=== PATIENT | female | born 1955 | race Hispanic/Latino ===

== ENCOUNTER 2018-11-19 13:37 | Emergency (ER) | payer BC ==
[2018-11-19] MEDS ORDERED: ALBUTEROL 2.5 MG/3 ML NEB SOL ONE (14:39)
[2018-11-19] MEDS ORDERED: IPRATROPIUM BROM 0.5MG/2.5ML ONE (14:39)
--- NOTE | 2018-11-19 15:17 | RAD REPORT ---
EXAM DESCRIPTION: Naya Felton (2 Views)11/19/2018 2:37 pm CLINICAL HISTORY: Cough COMPARISON: September 2017 FINDINGS: The lungs appear clear of acute infiltrate. The heart is borderline enlarged IMPRESSION: No acute abnormalities displayed
--- NOTE | 2018-11-19 15:39 | EDPHYS ---
Physician Documentation [facility] Name: Krystyna Figueroa Age: 63 yrs Sex: Female : 1955 Arrival Date: 11/19/2018 Time: 13:40 Bed 11 Private MD: Brice Sahu E ED Physician Gerhard James HPI: 11/19 15:37 This 63 yrs old Female presents to ER via Ambulatory with complaints of Sore kb Throat, Fever. 15:37 The patient or guardian reports cough, that is intermittent, described as moderate, kb with productive sputum, flu symptoms, low-grade fever, myalgias. Onset: The symptoms/episode began/occurred 1 week(s) ago. Severity of symptoms: At their worst the symptoms were moderate, in the emergency department the symptoms are unchanged. Modifying factors: The symptoms are alleviated by nothing, the symptoms are aggravated by nothing. Associated signs and symptoms: Pertinent positives: fever, sore throat, Pertinent negatives: chest pain, diarrhea, ear ache, nausea, sore throat, vomiting. The patient has not experienced similar symptoms in the past. The patient has not recently seen a physician. Historical: - Allergies: 13:40 No Known Allergies; la1 - PMHx: 13:40 allergies; Arthritis; Hypertension; la1 - Immunization history:: Adult Immunizations up to date. - Social history:: Smoking status: Patient/guardian denies using tobacco, Smoking status: Patient/guardian denies using tobacco. ROS: 15:36 Neck: Negative for injury, pain, and swelling, Cardiovascular: Negative for chest pain, kb palpitations, and edema, Abdomen/GI: Negative for abdominal pain, nausea, vomiting, diarrhea, and constipation, Back: Negative for injury and pain, MS/Extremity: Negative for injury and deformity, Skin: Negative for injury, rash, and discoloration, Neuro: Negative for headache, weakness, numbness, tingling, and seizure. 15:36 Constitutional: Positive for fever, Negative for body aches, chills, fatigue, malaise, poor PO intake, weight loss. 15:36 ENT: Positive for sore throat. 15:36 Respiratory: Positive for cough, Negative for dyspnea on exertion, hemoptysis, orthopnea, pleurisy, shortness of breath, sputum production, wheezing. Exam: 15:37 Constitutional: This is a well developed, well nourished patient who is awake, alert, kb and in no acute distress. Head/Face: Normocephalic, atraumatic. ENT: Nares patent. No nasal discharge, no septal abnormalities noted. Tympanic membranes are normal and external auditory canals are clear. Oropharynx with no redness, swelling, or masses, exudates, or evidence of obstruction, uvula midline. Mucous membranes moist. Neck: Trachea midline, no thyromegaly or masses palpated, and no cervical lymphadenopathy. Supple, full range of motion without nuchal rigidity, or vertebral point tenderness. No Meningismus. Chest/axilla: Normal chest wall appearance and motion. Nontender with no deformity. No lesions are appreciated. Cardiovascular: Regular rate and rhythm with a normal S1 and S2. No gallops, murmurs, or rubs. Normal PMI, no JVD. No pulse deficits. Abdomen/GI: Soft, non-tender, with normal bowel sounds. No distension or tympany. No guarding or rebound. No evidence of tenderness throughout. Skin: Warm, dry with normal turgor. Normal color with no rashes, no lesions, and no evidence of cellulitis. MS/ Extremity: Pulses equal, no cyanosis. Neurovascular intact. Full, normal range of motion. Neuro: Awake and alert, GCS 15, oriented to person, place, time, and situation. Cranial nerves II-XII grossly intact. Motor strength 5/5 in all extremities. Sensory grossly intact. Cerebellar exam normal. Normal gait. 15:37 Respiratory: the patient does not display signs of respiratory distress, Respirations: normal, symetrical, Breath sounds: wheezing: expiratory that is mild, is heard in the left posterior lower lobe and right posterior lower lobe. Vital Signs: 13:42 Pulse 85; Resp 18; Pulse Ox 97% on R/A; Weight 89.81 kg; Height 5 ft. 7 in. (170.18 cm);la1 13:42 Temp 98.3(O); la1 13:43 BP 115 / 72; la1 13:42 Body Mass Index 31.01 (89.81 kg, 170.18 cm) la1 MDM: 13:50 Patient medically screened. kb 15:36 Data reviewed: vital signs, nurses notes. Data interpreted: Pulse oximetry: on room air kb is 97 %. Interpretation: normal. Counseling: I had a detailed discussion with the patient and/or guardian regarding: the historical points, exam findings, and any diagnostic results supporting the discharge/admit diagnosis, lab results, radiology results, the need for outpatient follow up, a family practitioner, to return to the emergency department if symptoms worsen or persist or if there are any questions or concerns that arise at home. 11/19 13:42 Order name: Strep; Complete Time: 14:28 la1 11/19 13:44 Order name: Flu; Complete Time: 14:18 la1 11/19 14:16 Order name: Chest Pa And Lat (2 Views) XRAY; Complete Time: 15:18 kb 11/19 14:27 Order name: Throat Culture EDMS Administered Medications: 14:41 Drug: DuoNeb (3:1) (2.5 mg - 0.5 mg) 3 ml Route: Nebulizer; 15:58 Follow up: Response: No adverse reaction; Marked relief of symptoms ss Disposition: 11/19/18 15:39 Discharged to Home. Impression: Bronchitis, not specified as acute or chronic. - Condition is Stable. - Discharge Instructions: Acute Bronchitis, Esmi-nx-Aryx, Viral Respiratory Infection, [id number]-Mlkb. - Prescriptions for Prednisone 20 mg Oral Tablet - take 1 tablet by ORAL route once daily for 5 days; 5 tablet. - Medication Reconciliation Form, Thank You Letter, Antibiotic Education, Prescription Opioid Use form. - Follow up: Emergency Department; When: As needed; Reason: Worsening of condition. Follow up: Private Physician; When: 2 - 3 days; Reason: Recheck today's complaints, Continuance of care, Re-evaluation by your physician. Signatures: Dispatcher [employer] EDLucia Bartholomew, YUNG-C YUNG-Margy Wheeler RN RN ss Trev Navarro RN RN la1 Corrections: (The following items were deleted from the chart) 15:57 15:39 11/19/2018 15:39 Discharged to Home. Impression: Bronchitis, not specified as ss acute or chronic. Condition is Stable. Forms are Medication Reconciliation Form, Thank You Letter, Antibiotic Education, Prescription Opioid Use. Follow up: Emergency Department; When: As needed; Reason: Worsening of condition. Follow up: Private Physician; When: 2 - 3 days; Reason: Recheck today's complaints, Continuance of care, Re-evaluation by your physician. kb
--- NOTE | 2018-11-19 15:39 | ER ---
Nurse's Notes [facility] Name: Krystyna Figueroa Age: 63 yrs Sex: Female : 1955 Arrival Date: 11/19/2018 Time: 13:40 Bed 11 Private MD: Brice Sahu E Diagnosis: Bronchitis, not specified as acute or chronic Presentation: 11/19 13:41 Presenting complaint: Patient states: I have been coughing for over a week and my la1 tonsils got swollen and covered in pus. Transition of care: patient was not received from another setting of care. Onset of symptoms was November 19, 2018. Risk Assessment: Do you want to hurt yourself or someone else? Patient reports no desire to harm self or others. Initial Sepsis Screen: Does the patient meet any 2 criteria? No. Patient's initial sepsis screen is negative. Does the patient have a suspected source of infection? No. Patient's initial sepsis screen is negative. Care prior to arrival: None. 13:41 Method Of Arrival: Ambulatory la1 13:41 Acuity: GIANCARLO 4 la1 Historical: - Allergies: 13:40 No Known Allergies; la1 - PMHx: 13:40 allergies; Arthritis; Hypertension; la1 - Immunization history:: Adult Immunizations up to date. - Social history:: Smoking status: Patient/guardian denies using tobacco, Smoking status: Patient/guardian denies using tobacco. Screenin:37 Abuse screen: Denies threats or abuse. Denies injuries from another. Nutritional ss screening: No deficits noted. Tuberculosis screening: Never had TB. Fall Risk None identified. Assessment: 15:00 General: Appears in no apparent distress. comfortable, Behavior is calm, cooperative. ss General: Reports feeling ill for > 3 days. Neuro: Level of Consciousness is awake, alert, obeys commands, Oriented to person, place, time, situation. Cardiovascular: Capillary refill < 3 seconds is brisk in bilateral fingers. Respiratory: Airway is patent Respiratory effort is even, unlabored, Respiratory pattern is regular, symmetrical, Breath sounds with wheezes bilaterally. Respiratory: Reports cough that is dry, hacking, persistent. EENT: Nares are clear Oral mucosa is moist. Throat is clear. Derm: Skin is intact, is healthy with good turgor, Skin is pink, warm \T\ dry. normal. Musculoskeletal: Circulation, motion, and sensation intact. Range of motion: intact in all extremities, Swelling absent. 15:57 Reassessment: Patient appears in no apparent distress at this time. Patient and/or ss family updated on plan of care and expected duration. Pain level reassessed. Patient is alert, oriented x 3, equal unlabored respirations, skin warm/dry/pink. Patient states feeling better. Patient states symptoms have improved. Vital Signs: 13:42 Pulse 85; Resp 18; Pulse Ox 97% on R/A; Weight 89.81 kg; Height 5 ft. 7 in. (170.18 cm);la1 13:42 Temp 98.3(O); la1 13:43 BP 115 / 72; la1 13:42 Body Mass Index 31.01 (89.81 kg, 170.18 cm) la1 ED Course: 13:40 Patient arrived in ED. mr 13:40 Brice Sahu MD is Private Physician. mr 13:41 Lucia Mandujano FNP-C is [facility]. kb 13:41 Gerhard James MD is Attending Physician. kb 13:41 Arm band placed on left wrist. la1 13:42 Triage completed. la1 14:34 X-ray completed. Patient tolerated procedure well. tm4 14:36 Trev Navarro, RN is Primary Nurse. la1 14:37 Chest Pa And Lat (2 Views) XRAY In Process Unspecified. EDMS 14:37 Patient has correct armband on for positive identification. Bed in low position. Call ss light in reach. 15:57 No provider procedures requiring assistance completed. Patient did not have IV access ss during this emergency room visit. Administered Medications: 14:41 Drug: DuoNeb (3:1) (2.5 mg - 0.5 mg) 3 ml Route: Nebulizer; ss 15:58 Follow up: Response: No adverse reaction; Marked relief of symptoms ss Outcome: 15:39 Discharge ordered by . kb 15:57 Discharged to home ambulatory, with family. ss 15:57 Condition: good 15:57 Condition: improved 15:57 Discharge instructions given to patient, family, Instructed on discharge instructions, follow up and referral plans. medication usage, Demonstrated understanding of instructions, follow-up care, medications, Prescriptions given X 1. 15:57 Patient left the ED. ss Signatures: Dispatcher [employer] EDMS Lucia Mandujano HEALTH CARE CONSULTANT-C HEALTH CARE CONSULTANT-Fatou Santiago mr Melvin, Bibi tm4 Margy Ness, RN RN ss Trev Navarro RN RN la1
[2018-11-19 16:01] VITALS: TEMP 98.3; O2SAT 97
[2018-11-19 16:02] VITALS: BP 115/72
== END 2018-11-19 15:57 | disposition home or self-care (01) ==
LOC: ER 13:37
DX: J40 Bronchitis, not specified as acute or chronic (principal); I10 Essential (primary) hypertension
CPT/HCPCS: 71046; 87070; 87081; 87804; 94640; 99284

== ENCOUNTER 2020-06-10 07:09 | Day surgery (SDC) | payer BC ==
--- NOTE | 2020-06-07 11:30 | RAD REPORT ---
EXAM DESCRIPTION: RAD - Chest Pa And Lat (2 Views) - 06/07/2020 11:24 am CLINICAL HISTORY: pre op Chest pain. COMPARISON: Chest Pa And Lat (2 Views) dated 11/19/2018; Chest Single View dated 10/15/2017; Chest Pa And Lat (2 Views) dated 11/19/2016; CHEST PA AND LAT 2 VIEW dated 03/07/2015 FINDINGS: The lungs are clear. The heart is upper limit of normal in size. No displaced fractures. IMPRESSION: No acute or concerning finding suspected.
[2020-06-07 12:27] LABS: Absolute Lymphocytes (CBC) 2.5 K/uL (0.7-4.9); Basophils % 0.7 % (0-1.3); Hematocrit 41.2 % (36.0-45.0); Lymphocytes % 31.8 % (15.3-44.8); MPV 8.9 fL (7.6-11.3); RBC Red Blood Cell Count 4.96 M/uL (3.86-4.86)
[2020-06-07 12:42] LABS: Albumin 3.9 g/dL (3.4-5.0); Bilirubin Direct 0.1 mg/dL (0-0.2); Bilirubin Total 0.5 mg/dL (0.2-1.0); Potassium 3.5 mmol/L (3.5-5.1); Protein, Total 8.6 g/dL (6.4-8.2)
--- NOTE | 2020-06-09 11:15 | EKG ---
Test Date: 2020-06-07 Test Time: 11:01:03 Air Chipper: JOSE MEASUREMENT RESULTS: Intervals: Rate: 68 AL: 190 QRSD: 86 QT: 420 QTc: 446 [place]: P: 12 AL: 190 QRS: 71 T: 12 INTERPRETIVE STATEMENTS: Normal sinus rhythm Nonspecific ST and T wave abnormality Abnormal ECG Compared to ECG 10/16/2017 01:13:57 Possible ischemia no longer present ST (T wave) deviation still present Electronically Signed On 06-09-20 11:13:45 CDT by Karl Dodson
[2020-06-10] MEDS ORDERED: Ringers Lactate 1,000 ML IV ONE (07:54)
[2020-06-10] MEDS ORDERED: ROCURONIUM 50 MG/5 ML VIAL IV ONE (08:31)
[2020-06-10] MEDS ORDERED: FENTANYL CITR 100 MCG/2 ML ONE (08:31)
[2020-06-10] MEDS ORDERED: LIDOCAINE 2% MPF 5 ML VIAL ONE (08:31)
[2020-06-10] MEDS ORDERED: propofoL 200 MG/20 ML VIAL IV ONE (08:31)
[2020-06-10] MEDS ORDERED: MIDAZOLAM HCL 2 MG/2 ML INJ ONE (08:31)
[2020-06-10] MEDS ORDERED: dexAMETHasone 4 MG/ML VIAL ONE (08:32)
[2020-06-10] MEDS ORDERED: ONDANSETRON 4 MG/2 ML VIAL ONE ×2 (08:32→10:14)
[2020-06-10] MEDS ORDERED: CEFOXITIN/SWI 1gm 1 GM/10 ML SYR ONE (08:44)
[2020-06-10] MEDS ORDERED: KETOROLAC 30 MG/ML INJ ONE (09:20)
--- NOTE | 2020-06-10 09:26 | P.BOP ---
Preoperative diagnosis: acute cholecystitis, symptomatic cholelithiasis Postoperative diagnosis: same Primary procedure: Laparoscopic cholecystectomy Drug And Alcohol Counsellor: Milla Nava (Job) Estimated blood loss: <10cc Specimen: gb Findings: as above Anesthesia: General Complications: None Transferred to: Recovery Room Condition: Good
[2020-06-10] MEDS ORDERED: GLYCOPYRROLATE 0.2 MG/ML SYR ONE (09:37)
[2020-06-10] MEDS ORDERED: NEOSTIGMINE 1 MG/ML -5 ML ONE (09:37)
[2020-06-10] MEDS ORDERED: MEPERIDINE HCL 25 MG/ML SYR ONE (10:20)
[2020-06-10] MEDS ORDERED: CODEINE 30MG/APAP 300MG TAB ONE (10:57)
--- NOTE | 2020-06-10 11:30 | OP ---
Date of Procedure: 06/10/2020 Surgeon: Steven Simmons MD Redipper: SERA Varela. Preoperative Diagnosis: Acute cholecystitis, symptomatic cholelithiasis. Postoperative Diagnosis: Acute cholecystitis, symptomatic cholelithiasis. Procedure Performed: Laparoscopic cholecystectomy. Anesthesia: General plus local. Estimated Blood Loss: Less than 10 mL. Complications: None. Indications: This is the case of a 64-year-old patient, comes to us with above diagnosis. Fully exp lained the benefits, alternatives, and risks of laparoscopic possible open cholecystectomy, which inc lude, but not limited to infection, bleeding, damage to adjacent structures, anesthesia complication, choledocholithiasis, bile leak, pancreatitis, [place] and even . She also understands this may not relieve any symptoms. She might need more than one surgical intervention. She understood and signed the consent. Procedure In Detail: The patient was brought to the operating room and placed in supine position. A nesthesia was done without complication. Abdominal area was prepped and draped in a sterile fashion. Marcaine 0.5% was injected for local anesthetic followed by sharp incision of the skin in the supra umbilical region. Incision was carried down to fascia, which was opened under direct vision. Perito neum was encountered, opened under direct vision. Vicryl #1 placed inside the fascia. Trent trocar was carefully introduced. Pneumoperitoneum was obtained. I proceeded to place 3 more trocars, 5 mm each one of them, in the right upper quadrant under direct visualization. This allowed m e to put a grasper in the fundus of the gallbladder and another grasper in the infundibulum retractin g the gallbladder in the inferolateral fashion exposing the triangle of Calot and obtaining critical view. The cystic duct and cystic artery were clearly isolated, freed circumferentially and a connect ion between those and the gallbladder were clearly identified. I proceeded to ligate those by using at least 3 clips proximal, 1 clip distal, ligation in middle. Same was done with the cystic artery. No bile leak. No bleeding. The gallbladder was removed from liver using Bovie cauterizer and remov ed from abdominal cavity using EndoCatch through the umbilical incision. The area was inspected once again. No bile leak. No bleeding. At that moment, I proceeded to remove the trocars under direct vision, deflated pneumoperitoneum, closed the fascia with #1 Vicryl. Irrigated subcutaneous tissue, closed with 3-0 chromic, and skin in a subcuticular fashion with 3-0 chromic and Steri-Strips on top. Sponge count and instrument counts correct. The patient tolerated the procedure well. The patient was sent to Recovery in stable condition. LUCIANA/KRISTA Voice ID: [id number] Report ID: [id number]
--- NOTE | 2020-06-10 11:30 | DS ---
Diagnosis: Acute cholecystitis, symptomatic cholelithiasis. Procedure: Laparoscopic cholecystectomy. Disposition: Home. Activity: As tolerated, no heavy lifting. Plan: Follow up in my office in 1 week. Call for appointment [phone]. Keep area dry for 48 hours, then may shower. Keep Steri-Strip intact. Medications: Include Tylenol No.3 q.4 hours p.r.n. pain, Bactrim DS p.o. b.i.d. LUCIANA/KRISTA Voice ID: [id number] Report ID: [id number]
[2020-06-10 12:11] VITALS: BP 134/70; TEMP 97.9; O2SAT 97
== END 2020-06-10 11:48 | disposition home or self-care (01) ==
LOC: OR 07:09 → DS 11:48
PROVIDERS: ATTEND Surgery
PROC: 0FT44ZZ Resection of Gallbladder, Percutaneous Endoscopic Approach (ICD-10-PCS; principal; 2020-06-10 08:30)
DX: K80.12 Calculus of gallbladder with acute and chronic cholecystitis without obstruction (principal); I10 Essential (primary) hypertension; K21.9 Gastro-esophageal reflux disease without esophagitis; G62.9 Polyneuropathy, unspecified; J30.2 Other seasonal allergic rhinitis; F17.210 Nicotine dependence, cigarettes, uncomplicated; Z86.73 Personal history of transient ischemic attack (TIA), and cerebral infarction without residual deficits; Z20.828 Contact with and (suspected) exposure to other viral communicable diseases; Z83.3 Family history of diabetes mellitus; Z82.49 Family history of ischemic heart disease and other diseases of the circulatory system
CPT/HCPCS: 93005; 85025; 80048; 36415; 82150; 80076; 88304; 83690; 71046; 47562; U0002; J2704; J1100; J2250; J3010; J2175; J2710; J7120; J2405 ×2

== ENCOUNTER 2021-02-26 06:42 | Emergency (ER) | payer BC ==
[2021-02-26 07:14] LABS: Urine Blood Trace-intact (Negative); Urine Glucose Negative (Negative); Urine Protein Negative (Negative); Urine Specific Gravity 1.015 (1.005-1.030)
[2021-02-26] MEDS ORDERED: ONDANSETRON 4 MG/2 ML VIAL ONE (08:14)
[2021-02-26] MEDS ORDERED: MORPHINE 4 MG/ML SYR ONE (08:14)
[2021-02-26] MEDS ORDERED: NA CHLORIDE 0.9% 1,000 ML ONE (08:15)
[2021-02-26 08:20] LABS: Urine Bacteria <20 /HPF (<20); Urine RBC <5 /HPF (NONE SEEN)
--- NOTE | 2021-02-26 08:23 | RAD REPORT ---
EXAM DESCRIPTION: CT - Stone Protocol - 02/26/2021 7:57 am CLINICAL HISTORY: Abdominal pain. COMPARISON: 2019 and 2008 TECHNIQUE: Computed axial tomography of the abdomen pelvis was obtained without oral or IV contrast. Lack of IV and oral contrast limits evaluation of solid organs, bowel, and vessels. Coronal reformat kristy images were obtained and reviewed. All CT scans are performed using dose optimization technique as appropriate and may include automated exposure control or mA/KV adjustment according to patient size. FINDINGS: A renal calculus is not seen. An ureteral calculus is not noted. A bladder calculus is not present. Extrarenal pelves are present. The liver, spleen, pancreas and adrenals appear grossly normal There is no evidence of diverticulitis. The appendix appears normal No adnexal mass. Cholecystectomy The small umbilical hernia. Spondylosis lumbar spine. 7 millimeter probable calcification within the spinal canal at L3 is unchanged from 2019 and mildly e nlarged from 2008 in which measured 4 millimeters IMPRESSION: Negative for a genitourinary calculus 7 millimeter calcification within the spinal canal may represent a calcified ependymoma or meningioma . It is mildly enlarged from 2008 but unchanged from 2019.
--- NOTE | 2021-02-26 11:26 | ER ---
Nurse's Notes [facility] Name: Krystyna Figueroa Age: 65 yrs Sex: Female : 1955 Arrival Date: 02/26/2021 Time: 06:43 Bed 18 Private MD: Brice Sahu E Diagnosis: UTI/ Urinary tract infection, site not specified;Flank pain, left Presentation: 02/26 06:56 Chief complaint: Patient states: left flank pain that radiates into groin/left leg, em denies abdominal pain or burning with urination. Coronavirus screen: Client denies travel out of the [place] in the last 14 days. Ebola Screen: Patient negative for fever greater than or equal to 101.5 degrees Fahrenheit, and additional compatible Ebola Virus Disease symptoms Patient denies exposure to infectious person. Patient denies travel to an Ebola-affected area in the 21 days before illness onset. No symptoms or risks identified at this time. Initial Sepsis Screen: Does the patient meet any 2 criteria? No. Patient's initial sepsis screen is negative. Does the patient have a suspected source of infection? No. Patient's initial sepsis screen is negative. Risk Assessment: Do you want to hurt yourself or someone else? Patient reports no desire to harm self or others. Onset of symptoms was February 26, 2021. 06:56 Method Of Arrival: Ambulatory em 06:56 Acuity: GIANCARLO 3 em Historical: - Allergies: 06:59 No Known Allergies; em - PMHx: 06:59 allergies; Arthritis; Hypertension; em - PSHx: 06:59 Cholecystectomy; em - Immunization history:: Adult Immunizations up to date. - Social history:: Smoking status: Patient reports the use of cigarette tobacco products, denies chronic smoking, but will smoke occasionally. Screenin:15 Abuse screen: Denies threats or abuse. Denies injuries from another. Nutritional jl7 screening: No deficits noted. Tuberculosis screening: No symptoms or risk factors identified. Fall Risk IV access (20 points). Total Ubrk Fall Scale indicates No Risk (0-24 pts). Assessment: 07:45 General: Appears in no apparent distress. uncomfortable, Behavior is calm, cooperative, jl7 appropriate for age. Pain: Complains of pain in left mid back Pain radiates to left lower quadrant Pain currently is 10 out of 10 on a pain scale. Pain began x8 days Is continuous. Neuro: Level of Consciousness is awake, alert, obeys commands, Oriented to person, place, time, situation. Cardiovascular: Patient's skin is warm and dry. Respiratory: Airway is patent Respiratory effort is even, unlabored, Respiratory pattern is regular, symmetrical. GI: Abdomen is non-distended. : Urine is clear, Reports pain in left flank(s), Denies burning with urination, pain with urination. Derm: Skin is pink, warm \T\ dry. 09:00 Reassessment: Patient appears in no apparent distress at this time. Patient and/or jl7 family updated on plan of care and expected duration. Pain level reassessed. Patient is alert, oriented x 3, equal unlabored respirations, skin warm/dry/pink. 10:00 Reassessment: Patient appears in no apparent distress at this time. Patient and/or jl7 family updated on plan of care and expected duration. Pain level reassessed. Patient is alert, oriented x 3, equal unlabored respirations, skin warm/dry/pink. Patient states feeling better. Patient states symptoms have improved. 11:15 Reassessment: Dr. Sanchez at bedside discussing results and POC. jl7 Vital Signs: 06:56 BP 149 / 90; Pulse 88; Resp 16; Temp 97.1; Pulse Ox 97% on R/A; Weight 86.18 kg; Height em 5 ft. 7 in. (170.18 cm); Pain 10/10; 08:15 BP 127 / 69; Pulse 81; Resp 15; Pulse Ox 97% ; Pain 10/10; jl7 10:01 BP 127 / 57; Pulse 60; Resp 17; Pulse Ox 97% ; jl7 06:56 Body Mass Index 29.76 (86.18 kg, 170.18 cm) em ED Course: 06:43 Patient arrived in ED. es 06:44 Brice Sahu MD is Private Physician. es 06:59 Triage completed. em 06:59 Arm band placed on. em 07:05 Jenifer Morejon, TONI is Primary Nurse. jl7 07:10 Urine collected: clean catch specimen, clear. jl7 07:38 Gerald Sanchez MD is Attending Physician. kdr 07:56 CT Stone Protocol In Process Unspecified. EDMS 08:15 Patient has correct armband on for positive identification. Bed in low position. Call jl7 light in reach. Side rails up X 1. Pulse ox on. NIBP on. Warm blanket given. 08:15 Inserted saline lock: 20 gauge in right hand, using aseptic technique. Blood collected. jl7 10:22 Urine Culture Sent. jl7 11:24 Brice Sahu MD is Referral Physician. kdr 11:38 No provider procedures requiring assistance completed. IV discontinued, intact, jl7 bleeding controlled, No redness/swelling at site. Pressure dressing applied. Administered Medications: 08:15 Drug: Zofran (Ondansetron) 4 mg Route: IVP; Site: right hand; jl7 10:02 Follow up: Response: No adverse reaction jl7 08:15 Drug: NS 0.9% 1000 ml Route: IV; Rate: 1 bolus; Site: right hand; jl7 09:30 Follow up: Response: No adverse reaction; IV Status: Completed infusion; IV Intake: jl7 1000ml 08:17 Drug: morphine 4 mg Route: IVP; Site: right hand; jl7 08:45 Follow up: Response: No adverse reaction; Pain is decreased jl7 11:38 Drug: traMADol 100 mg Route: PO; jl7 11:38 Follow up: Response: Medication administered at discharge. jl7 Intake: 09:30 IV: 1000ml; Total: 1000ml. jl7 Outcome: 11:25 Discharge ordered by . kdr 11:38 Discharged to home ambulatory, with family. jl7 11:38 Condition: stable 11:38 Discharge instructions given to patient, family, Instructed on discharge instructions, follow up and referral plans. Demonstrated understanding of instructions, follow-up care. 11:40 Patient left the ED. jl7 Signatures: Dispatcher [employer] Gerald Zhu MD MD kdr Salyer, Edna es Munoz, Edgar RN RN Jenifer Esteves RN RN jl7
--- NOTE | 2021-02-26 11:26 | EDPHYS ---
Physician Documentation [facility] Name: Krystyna Figueroa Age: 65 yrs Sex: Female : 1955 Arrival Date: 02/26/2021 Time: 06:43 Bed 18 Private MD: Brice Sahu E ED Physician Gerald Sanchez HPI: 02/26 16:35 This 65 yrs old Female presents to ER via Ambulatory with complaints of Flank kdr Pain. 16:35 The patient presents with abdominal pain Left flank. Onset: The symptoms/episode kdr began/occurred gradually, 3 day(s) ago. The symptoms radiate to the left flank. Associated signs and symptoms: Pertinent positives: nausea and vomiting, Pertinent negatives: constipation, diarrhea, dysuria, fever, headache, vaginal discharge, vomiting blood. The symptoms are described as achy, crampy, steady, vague. Modifying factors: The symptoms are alleviated by nothing, the symptoms are aggravated by touching the area. Severity of pain: At its worst the pain was. The patient has not experienced similar symptoms in the past. The patient has not recently seen a physician. Historical: - Allergies: 06:59 No Known Allergies; em - PMHx: 06:59 allergies; Arthritis; Hypertension; em - PSHx: 06:59 Cholecystectomy; em - Immunization history:: Adult Immunizations up to date. - Social history:: Smoking status: Patient reports the use of cigarette tobacco products, denies chronic smoking, but will smoke occasionally. ROS: 16:35 Constitutional: Negative for fever, chills, and weight loss, Eyes: Negative for injury, kdr pain, redness, and discharge, ENT: Negative for injury, pain, and discharge, Neck: Negative for injury, pain, and swelling, Cardiovascular: Negative for chest pain, palpitations, and edema, Respiratory: Negative for shortness of breath, cough, wheezing, and pleuritic chest pain, Back: Negative for injury and pain, : Negative for injury, bleeding, discharge, and swelling, MS/Extremity: Negative for injury and deformity, Skin: Negative for injury, rash, and discoloration, Neuro: Negative for headache, weakness, numbness, tingling, and seizure activity. Psych: Negative for depression, anxiety, suicide ideation, homicidal ideation, and hallucinations, Allergy/Immunology: Negative for hives, rash, and allergies, Endocrine: Negative for neck swelling, polydipsia, polyuria, polyphagia, and marked weight changes, Hematologic/Lymphatic: Negative for swollen nodes, abnormal bleeding, and unusual bruising. 16:35 Abdomen/GI: Positive for abdominal pain, nausea and vomiting, Negative for abdominal pain, constipation, abdominal cramps, abdominal distension, anorexia, black/tarry stool, rectal pain. Exam: 16:35 Constitutional: This is a well developed, well nourished patient who is awake, alert, kdr and in no acute distress. Head/Face: Normocephalic, atraumatic. Eyes: Pupils equal round and reactive to light, extra-ocular motions intact. Lids and lashes normal. Conjunctiva and sclera are non-icteric and not injected. Cornea within normal limits. Periorbital areas with no swelling, redness, or edema. Neck: Trachea midline, no thyromegaly or masses palpated, and no cervical lymphadenopathy. Supple, full range of motion without nuchal rigidity, or vertebral point tenderness. No Meningismus. Chest/axilla: Normal chest wall appearance and motion. Nontender with no deformity. No lesions are appreciated. Cardiovascular: Regular rate and rhythm with a normal S1 and S2. No gallops, murmurs, or rubs. Normal PMI, no JVD. No pulse deficits. Respiratory: Lungs have equal breath sounds bilaterally, clear to auscultation and percussion. No rales, rhonchi or wheezes noted. No increased work of breathing, no retractions or nasal flaring. Back: No spinal tenderness. No costovertebral tenderness. Full range of motion. Skin: Warm, dry with normal turgor. Normal color with no rashes, no lesions, and no evidence of cellulitis. MS/ Extremity: Pulses equal, no cyanosis. Neurovascular intact. Full, normal range of motion. Neuro: Awake and alert, GCS 15, oriented to person, place, time, and situation. Cranial nerves II-XII grossly intact. Motor strength 5/5 in all extremities. Sensory grossly intact. Cerebellar exam normal. Normal gait. Psych: Awake, alert, with orientation to person, place and time. Behavior, mood, and affect are within normal limits. 16:35 Abdomen/GI: Inspection: abdomen appears normal, obese Palpation: soft, mild abdominal tenderness, in the posterior aspect of left lateral abdomen and anterior aspect of left lateral abdomen. Vital Signs: 06:56 BP 149 / 90; Pulse 88; Resp 16; Temp 97.1; Pulse Ox 97% on R/A; Weight 86.18 kg; Height em 5 ft. 7 in. (170.18 cm); Pain 10/10; 08:15 BP 127 / 69; Pulse 81; Resp 15; Pulse Ox 97% ; Pain 10/10; jl7 10:01 BP 127 / 57; Pulse 60; Resp 17; Pulse Ox 97% ; jl7 06:56 Body Mass Index 29.76 (86.18 kg, 170.18 cm) em MDM: 11:25 Patient medically screened. kdr 16:35 Data reviewed: vital signs, nurses notes, lab test result(s), radiologic studies. kdr Counseling: I had a detailed discussion with the patient and/or guardian regarding: the historical points, exam findings, and any diagnostic results supporting the discharge/admit diagnosis, lab results, radiology results, the need for outpatient follow up. 02/26 07:14 Order name: Urine Dipstick-Ancillary; Complete Time: 09:58 EDMS 02/26 07:15 Order name: Urine Microscopic Only; Complete Time: 09:58 jl7 02/26 07:45 Order name: CT Stone Protocol; Complete Time: 09:58 kdr 02/26 08:22 Order name: Urine Culture EDMS Administered Medications: 08:15 Drug: Zofran (Ondansetron) 4 mg Route: IVP; Site: right hand; jl7 10:02 Follow up: Response: No adverse reaction jl7 08:15 Drug: NS 0.9% 1000 ml Route: IV; Rate: 1 bolus; Site: right hand; jl7 09:30 Follow up: Response: No adverse reaction; IV Status: Completed infusion; IV Intake: jl7 1000ml 08:17 Drug: morphine 4 mg Route: IVP; Site: right hand; jl7 08:45 Follow up: Response: No adverse reaction; Pain is decreased jl7 11:38 Drug: traMADol 100 mg Route: PO; jl7 11:38 Follow up: Response: Medication administered at discharge. jl7 Disposition Summary: 02/26/21 11:25 Discharge Ordered Location: Home kdr Problem: new kdr Symptoms: have improved kdr Condition: Stable kdr Diagnosis - UTI/ Urinary tract infection, site not specified kdr - Flank pain, left kdr Followup: kdr - With: Brice Sahu MD - When: 2 - 3 days - Reason: If symptoms return, Further diagnostic work-up, Recheck today's complaints, Continuance of care, Re-evaluation by your physician Discharge Instructions: - Discharge Summary Sheet kdr - Urinary Tract Infection, Adult, [id number] kdr Forms: - Medication Reconciliation Form kdr - Thank You Letter kdr - Antibiotic Education kdr - Prescription Opioid Use kdr Prescriptions: - Tramadol 50 mg Oral Tablet - take 1 tablet by ORAL route every 8 hours as needed; 12 tablet; Refills: 0, kdr Product Selection Permitted - Bactrim DS 800-160 mg Oral Tablet - take 1 tablet by ORAL route every 12 hours for 3 days; 6 tablet; Refills: 0, kdr Product Selection Permitted Signatures: Dispatcher [employer] Gerald Zhu MD MD kdr Scar Loew, RN RN em Jenifer Morejon RN RN jl7
[2021-02-26 11:48] VITALS: TEMP 97.1; O2SAT 97
[2021-02-26] MEDS ORDERED: TRAMADOL HCL 50 MG TAB ONE (11:50)
[2021-02-26 11:51] VITALS: BP 127/57
== END 2021-02-26 11:40 | disposition home or self-care (01) ==
LOC: ER 06:42
DX: N39.0 Urinary tract infection, site not specified (principal); I10 Essential (primary) hypertension; F17.210 Nicotine dependence, cigarettes, uncomplicated
CPT/HCPCS: 96361; 87088; 87086; 76377; 74176; 96375; 96374; 99284; J7030; J2405; 81003; 81015

== ENCOUNTER 2021-11-18 19:17 | Observation (INO) | payer BC ==
--- NOTE | 2021-11-18 20:48 | RAD REPORT ---
EXAM DESCRIPTION: Naya Single View11/18/2021 8:31 pm CLINICAL HISTORY: Chest pain COMPARISON: 2019 FINDINGS: Mild opacity mid left lung. Right lung appears clear of acute infiltrate. The heart is normal size IMPRESSION: Mild opacity mid left lung probably pneumonia
[2021-11-18 20:57] LABS: Absolute Lymphocytes (CBC) 1.3 K/uL (0.7-4.9); Hematocrit 38.5 % (36.0-45.0); Lymphocytes % 21.3 % (15.3-44.8); MPV 8.4 fL (7.6-11.3); RBC Red Blood Cell Count 4.75 M/uL (3.86-4.86)
[2021-11-18] MEDS ORDERED: CEFTRIAXONE 1000 MG/VIAL ONE (21:10)
[2021-11-18] MEDS ORDERED: ASPIRIN 81 MG CHEWABLE TABLET ONE (21:10)
[2021-11-18] MEDS ORDERED: METHYLPREDNISOLONE 125 MG INJ ONE (21:10)
[2021-11-18] MEDS ORDERED: predniSONE 20 MG TAB ONE (21:10)
[2021-11-18] MEDS ORDERED: AZITHROMYCIN 500 MG INJ IVPB ONE (21:11)
[2021-11-18] MEDS ORDERED: LEVALBUTEROL 1.25 MG/3 ML NEB ONE ×2 (21:11→21:20)
[2021-11-18] MEDS ORDERED: IPRATROPIUM BROM 0.5MG/2.5ML ONE (21:11)
[2021-11-18] MEDS ORDERED: NA CHLORIDE 0.9% 1,000 ML ONE (21:11)
[2021-11-18] MEDS ORDERED: NA CHLORIDE 0.9% 250 ML ONE (21:11)
[2021-11-18] MEDS ORDERED: ACETAMINOPHEN 500 MG TAB ONE (21:15)
[2021-11-18 21:17] LABS: Potassium 3.2 mmol/L (3.5-5.1)
[2021-11-18 21:32] LABS: SARS-COV-2 RT PCR NEGATIVE (NEGATIVE)
[2021-11-18] MEDS ORDERED: POTASSIUM 25 MEQ EFFERV TAB ONE (21:41)
--- NOTE | 2021-11-18 22:05 | ER ---
Nurse's Notes [facility] Name: Krystyna Figueroa Age: 66 yrs Sex: Female : 1955 Arrival Date: 11/18/2021 Time: 19:20 Bed 19 Private MD: Diagnosis: Dyspnea;Chest pain, unspecified;Other pneumonia, unspecified organism-left lower lobe;Weakness;Hypokalemia;Pulmonary embolism without acute cor pulmonale Presentation: 11/18 19:26 Chief complaint: Patient states: "I started sneezing and coughing Wednesday and it got ab2 worse now I have chest congestion. My head feels tight". Coronavirus screen: Vaccine status: Patient reports receiving the 2nd dose of the covid vaccine. Client denies travel out of the [place] in the last 14 days. congestion, cough unrelated to allergies, headache, Client presents with at least one sign or symptom that may indicate coronavirus-19. Standard/surgical mask placed on the client. Provider contacted for isolation considerations. Ebola Screen: Patient negative for fever greater than or equal to 101.5 degrees Fahrenheit, and additional compatible Ebola Virus Disease symptoms Patient denies exposure to infectious person. Patient denies travel to an Ebola-affected area in the 21 days before illness onset. No symptoms or risks identified at this time. Initial Sepsis Screen: Does the patient meet any 2 criteria? No. Patient's initial sepsis screen is negative. Does the patient have a suspected source of infection? No. Patient's initial sepsis screen is negative. Risk Assessment: Do you want to hurt yourself or someone else? Patient reports no desire to harm self or others. Onset of symptoms is unknown. 19:26 Method Of Arrival: Ambulatory ab2 19:31 Acuity: GIANCARLO 3 ab2 Triage Assessment: 19:30 Headache History: Denies prior headaches. General: Appears in no apparent distress. ab2 uncomfortable. General: Behavior is calm, cooperative, appropriate for age. Pain: Denies pain. Neuro: Level of Consciousness is awake, alert, obeys commands, Oriented to person, place, time, situation, Appropriate for age Reports dizziness, headache. Cardiovascular: Denies chest pain, shortness of breath. Respiratory: Reports cough that is Airway is patent Respiratory effort is even, unlabored, Respiratory pattern is regular, symmetrical. 22:23 Pain: Pain at worst was 8 out of 10 on a pain scale. Pain began 1 day ago. Also kd3 complains of no other associated symptoms. Historical: - Allergies: 19:29 No Known Allergies; ab2 - Home Meds: 19:29 gabapentin 300 mg Oral cap BID PRN [Active]; hydrochlorothiazide 25 mg Oral tab 1 tab ab2 once daily [Active]; montelukast 10 mg Oral tab 1 tab once daily [Active]; - PMHx: 19:29 allergies; Arthritis; Hypertension; ab2 - PSHx: 19:29 Cholecystectomy; ab2 - Immunization history:: Adult Immunizations up to date, Client reports receiving the 2nd dose of the Covid vaccine. - Social history:: Smoking status: Patient reports the use of cigarette tobacco products, smokes one-half pack cigarettes per day. Screenin:03 Abuse screen: Denies threats or abuse. Denies injuries from another. Nutritional kd3 screening: On. Tuberculosis screening: No symptoms or risk factors identified. Fall Risk IV access (20 points). Assessment: 22:25 Pain: Complains of pain in chest. kd3 Vital Signs: 19:26 BP 152 / 68; Pulse 79; Resp 17; Temp 97.9(TE); Pulse Ox 96% on R/A; Weight 86.18 kg; ab2 Height 5 ft. 7 in. (170.18 cm); Pain 0/10; 22:25 Pulse 89; Resp 17; Pulse Ox 95% on R/A; kd3 19:26 Body Mass Index 29.76 (86.18 kg, 170.18 cm) ab2 ED Course: 19:20 Patient arrived in ED. ja2 19:29 Triage completed. ab2 19:30 Arm band placed on right wrist. ab2 19:44 Noé Tirado MD is Attending Physician. dale 20:22 Kelly Chavez, TONI is Primary Nurse. kd3 20:31 XRAY Chest (1 view) In Process Unspecified. EDMS 22:03 Neal Gutierres is Hospitalizing Provider. dale 22:05 CT Chest For PE Angio In Process Unspecified. EDMS 22:24 Patient has correct armband on for positive identification. kd3 22:37 US Extremity Venous W Compression Dylan In Process Unspecified. EDMS Administered Medications: 21:34 Drug: Zithromax (azithromycin) 500 mg Route: IVPB; Infused Over: 1 hrs; Site: right kd3 forearm; 21:34 Drug: Aspirin 81 mg Route: PO; kd3 21:34 Drug: Tylenol 1000 mg Route: PO; kd3 21:35 Drug: SOLU-Medrol (methylPrednisoLONE) 125 mg Route: IVP; Site: right forearm; kd3 21:35 Drug: predniSONE 40 mg Route: PO; kd3 21:35 Drug: Xopenex (levalbuterol) 3.75 mg Route: Inhalation; kd3 21:35 Drug: AtroVENT (ipratropium) Aerosol 0.5 mg Route: Inhalation; kd3 21:35 Drug: Rocephin (cefTRIAXone) 1 grams Route: IV; Rate: per protocol; Site: right forearm;kd3 21:36 Drug: NS 0.9% 1000 ml Route: IV; Rate: 1 bolus; Site: right forearm; kd3 21:40 Drug: Potassium Effervescent Tablet 50 mEq Route: PO; kd3 23:00 Drug: Lovenox (enoxaparin) 1 mg/kg Route: Sub-Q; Site: right lower abdomen; kd3 Outcome: 22:04 Decision to Hospitalize by Provider. [facility] 23:40 Patient left the ED. tw5 Signatures: Dispatcher [employer] EDNoé Mccallum MD MD cha Alexander, Jessica ja2 Wood, Tiffany tw5 Kelly Chavez RN RN kd3 Mauricio Steinberg2 Corrections: (The following items were deleted from the chart) 19:31 19:26 Acuity: GIANCARLO 4 ab2 ab2
--- NOTE | 2021-11-18 22:05 | EDPHYS ---
Physician Documentation [facility] Name: Krystyna Figueroa Age: 66 yrs Sex: Female : 1955 Arrival Date: 11/18/2021 Time: 19:20 Bed 19 Private MD: ED Physician Noé Tirado HPI: 11/18 19:58 This 66 yrs old Female presents to ER via Ambulatory with complaints of Cough, dale Chest Congestion, Headache. 19:58 The patient or guardian reports airway noise, cough, difficulty breathing, flu dale symptoms, low-grade fever, myalgias. Onset: The symptoms/episode began/occurred 4 day(s) ago. Severity of symptoms: At their worst the symptoms were mild, moderate, in the emergency department the symptoms are actually worse, mildly. Modifying factors: The symptoms are alleviated by nothing, cool environment, the symptoms are aggravated by dust, exertion. Associated signs and symptoms: Pertinent positives: chest pain, nausea, rhinorrhea, sore throat, vomiting. The patient has not experienced similar symptoms in the past. Historical: - Allergies: 19:29 No Known Allergies; ab2 - Home Meds: 19:29 gabapentin 300 mg Oral cap BID PRN [Active]; hydrochlorothiazide 25 mg Oral tab 1 tab ab2 once daily [Active]; montelukast 10 mg Oral tab 1 tab once daily [Active]; - PMHx: 19:29 allergies; Arthritis; Hypertension; ab2 - PSHx: 19:29 Cholecystectomy; ab2 - Immunization history:: Adult Immunizations up to date, Client reports receiving the 2nd dose of the Covid vaccine. - Social history:: Smoking status: Patient reports the use of cigarette tobacco products, smokes one-half pack cigarettes per day. ROS: 20:00 Constitutional: Negative for fever, chills, and weight loss, Eyes: Negative for injury, dale pain, redness, and discharge, ENT: Negative for injury, pain, and discharge, Neck: Negative for injury, pain, and swelling, Abdomen/GI: Negative for abdominal pain, nausea, vomiting, diarrhea, and constipation, Back: Negative for injury and pain, : Negative for injury, bleeding, discharge, and swelling, MS/Extremity: Negative for injury and deformity, Skin: Negative for injury, rash, and discoloration, Neuro: Negative for headache, weakness, numbness, tingling, and seizure, Psych: Negative for depression, anxiety, suicide ideation, homicidal ideation, and hallucinations, Allergy/Immunology: Negative for hives, rash, and allergies, Endocrine: Negative for neck swelling, polydipsia, polyuria, polyphagia, and marked weight changes, Hematologic/Lymphatic: Negative for swollen nodes, abnormal bleeding, and unusual bruising. 20:00 Cardiovascular: Positive for chest pain, with cough, of the chest. 20:00 Respiratory: Positive for cough, "sounds productive", shortness of breath, at rest. wheezing, inspiratory, expiratory. Exam: 20:00 Constitutional: This is a well developed, well nourished patient who is awake, alert, dale and in no acute distress. Head/Face: Normocephalic, atraumatic. Eyes: Pupils equal round and reactive to light, extra-ocular motions intact. Lids and lashes normal. Conjunctiva and sclera are non-icteric and not injected. Cornea within normal limits. Periorbital areas with no swelling, redness, or edema. ENT: Nares patent. No nasal discharge, no septal abnormalities noted. Tympanic membranes are normal and external auditory canals are clear. Oropharynx with no redness, swelling, or masses, exudates, or evidence of obstruction, uvula midline. Mucous membranes moist. Neck: Trachea midline, no thyromegaly or masses palpated, and no cervical lymphadenopathy. Supple, full range of motion without nuchal rigidity, or vertebral point tenderness. No Meningismus. Chest/axilla: Normal chest wall appearance and motion. Nontender with no deformity. No lesions are appreciated. Abdomen/GI: Soft, non-tender, with normal bowel sounds. No distension or tympany. No guarding or rebound. No evidence of tenderness throughout. Back: No spinal tenderness. No costovertebral tenderness. Full range of motion. Female : Normal external genitalia. Skin: Warm, dry with normal turgor. Normal color with no rashes, no lesions, and no evidence of cellulitis. MS/ Extremity: Pulses equal, no cyanosis. Neurovascular intact. Full, normal range of motion. Neuro: Awake and alert, GCS 15, oriented to person, place, time, and situation. Cranial nerves II-XII grossly intact. Motor strength 5/5 in all extremities. Sensory grossly intact. Cerebellar exam normal. Normal gait. Psych: Awake, alert, with orientation to person, place and time. Behavior, mood, and affect are within normal limits. 20:00 Cardiovascular: Rate: normal, Rhythm: regular, Pulses: Pulses are 4+ in bilateral radial, brachial, femoral, popliteal, posterior tibial and and dorsalis pedis arteries.. Heart sounds: normal, normal S1and S2, Edema: is not appreciated, JVD: is not appreciated. Vital Signs: 19:26 BP 152 / 68; Pulse 79; Resp 17; Temp 97.9(TE); Pulse Ox 96% on R/A; Weight 86.18 kg; ab2 Height 5 ft. 7 in. (170.18 cm); Pain 0/10; 22:25 Pulse 89; Resp 17; Pulse Ox 95% on R/A; kd3 19:26 Body Mass Index 29.76 (86.18 kg, 170.18 cm) ab2 MDM: 19:44 Patient medically screened. dale 20:02 Differential diagnosis: asthma, Bronchitis CHF exacerbation, Chronic Obstructive dale Pulmonary Disease bronchitis, flu, URI, pulmonary edema, Pulmonary Embolism reactive airway disease. Antibiotic administration: The patient is discharged and will get outpatient antibiotics, Zithromax. The patient's Wells Deep Vein Thrombosis Score was calculated as follows: Total Score: 0-2 Pts- Low Risk. Differential Diagnosis: Bronchitis Influenza Sinusitis Pharyngitis Otitis Media Asthma Exacerbation Viral Syndrome Pneumonia. The patient's pulmonary embolism risk score was calculated as follows: Total Score: 0-2 points. This patient was found to be at low risk for a pulmonary embolism by using the Well's assessment criteria. Immunization status: Pneumococcal vaccine: Influenza vaccine: Data reviewed: vital signs, nurses notes, lab test result(s), EKG, radiologic studies, plain films. Data interpreted: bun panner: rate is 79 beats/min, rhythm is regular, Pulse oximetry: on room air is 96 %. Test interpretation: by ED physician or midlevel provider: ECG, plain radiologic studies. Counseling: I had a detailed discussion with the patient and/or guardian regarding: the historical points, exam findings, and any diagnostic results supporting the discharge/admit diagnosis, lab results, radiology results. 11/18 19:55 Order name: Basic Metabolic Panel; Complete Time: 22:42 dale 11/18 19:55 Order name: CBC with Diff; Complete Time: 21:28 [facility] 11/18 19:55 Order name: D-Dimer; Complete Time: 21:28 [facility] 11/18 19:55 Order name: NT PRO-BNP; Complete Time: 22:42 [facility] 11/18 19:55 Order name: Troponin HS; Complete Time: 22:42 [facility] 11/18 19:55 Order name: COVID-19/FLU A+B (Document "Date of Onset" if Symptomatic); Complete Time: [facility] :11/18 19:55 Order name: XRAY Chest (1 view); Complete Time: 21:28 [facility] 11/18 19:58 Order name: Blood Culture Adult (2) 11/18 21:29 Order name: CT Chest For PE Angio; Complete Time: 22:42 [facility] 11/18 21:29 Order name: US Extremity Venous W Compression Dylan 11/18 19:55 Order name: EKG; Complete Time: 19:56 [facility] 11/18 19:55 Order name: Cardiac monitoring; Complete Time: 21:53 [facility] 11/18 19:55 Order name: EKG - Nurse/Tech; Complete Time: 21:53 [facility] 11/18 19:55 Order name: IV Saline Lock; Complete Time: 21:36 [facility] 11/18 19:55 Order name: Labs collected and sent; Complete Time: 21:36 [facility] 11/18 19:55 Order name: O2 Per Protocol; Complete Time: 21:36 [facility] 11/18 19:55 Order name: O2 Sat Monitoring; Complete Time: 21:36 [facility] Administered Medications: 21:34 Drug: Zithromax (azithromycin) 500 mg Route: IVPB; Infused Over: 1 hrs; Site: right kd3 forearm; 21:34 Drug: Aspirin 81 mg Route: PO; kd3 21:34 Drug: Tylenol 1000 mg Route: PO; kd3 21:35 Drug: SOLU-Medrol (methylPrednisoLONE) 125 mg Route: IVP; Site: right forearm; kd3 21:35 Drug: predniSONE 40 mg Route: PO; kd3 21:35 Drug: Xopenex (levalbuterol) 3.75 mg Route: Inhalation; kd3 21:35 Drug: AtroVENT (ipratropium) Aerosol 0.5 mg Route: Inhalation; kd3 21:35 Drug: Rocephin (cefTRIAXone) 1 grams Route: IV; Rate: per protocol; Site: right forearm;kd3 21:36 Drug: NS 0.9% 1000 ml Route: IV; Rate: 1 bolus; Site: right forearm; kd3 21:40 Drug: Potassium Effervescent Tablet 50 mEq Route: PO; kd3 23:00 Drug: Lovenox (enoxaparin) 1 mg/kg Route: Sub-Q; Site: right lower abdomen; kd3 Disposition Summary: 11/18/21 22:04 Hospitalization Ordered Hospitalization Status: Observation [facility] Provider: Neal Gutierres cha Location: Telemetry/MedSurg (observation) dale Condition: [place] dale Problem: new dale Symptoms: have improved dlae Bed/Room Type: Standard [facility] Room Assignment: 208(11/18/21 22:48) cg Diagnosis - Dyspnea dale - Chest pain, unspecified dale - Other pneumonia, unspecified organism - left lower lobe dale - Weakness dale - Hypokalemia dale - Pulmonary embolism without acute cor pulmonale [facility] Discharge Instructions: - Discharge Summary Sheet dale - Acute Bronchitis, Adult dale - Upper Respiratory Infection, Adult dale - Cool Mist Vaporizer dale - Acute Bronchitis, Adult, [id number] dale - Potassium Content of Foods dale - Upper Respiratory Infection, Adult, [id number] dale - Cough, Adult, [id number] dale - Steps to Quit Smoking, [id number] dale - Hypokalemia [facility] Forms: - Medication Reconciliation Form dale - SBAR form [facility] Prescriptions: - Prednisone 20 mg Oral Tablet - take 2 tablets by ORAL route once daily for 5 days; 10 tablet; Refills: 0, [facility] Product Selection Permitted - Zithromax 500 mg Oral Tablet - take 1 tablet by ORAL route once daily for 5 days; 5 tablet; Refills: 0, [facility] Product Selection Permitted - albuterol sulfate 90 mcg/actuation Inhalation HFA aerosol inhaler - inhale 2 puff by INHALATION route every 4-6 hours As needed; 1 Inhaler; [id number] Refills: 0, Product Selection Permitted Signatures: Dispatcher [employer] Noé Syed MD MD cha Garcia, Cindy RN RN Kelly Massey RN RN kd3 Mauricio Steinberg Sophia, PA PA sb3 Corrections: (The following items were deleted from the chart) 22:48 22:04 [facility] cg
--- NOTE | 2021-11-18 22:28 | RAD REPORT ---
EXAM DESCRIPTION: CT - Chest For Pe Angio - 11/18/2021 10:05 pm CLINICAL HISTORY: Chest pain COMPARISON: None. TECHNIQUE: Dynamically enhanced axial 3 mm thick images of the chest were obtained during administra tion of <100> mL Isovue 370 IV contrast. Coronal and oblique reconstruction images were generated and reviewed. Exam utilizes a protocol for optimal evaluation of pulmonary arterial tree. Maximum intensity projections 3D imaging was utilized All CT scans are performed using dose optimization technique as appropriate and may include automated exposure control or mA/KV adjustment according to patient size. FINDINGS: Small filling defect within the left upper lobe segmental pulmonary artery consistent with thrombus A thoracic aortic aneurysm is not noted. A pleural effusion is not seen. A pericardial effusion is not seen. Rectangular opacity within the lingula has the appearance of atelectasis. IMPRESSION: Small amount of left upper lobe pulmonary embolus
[2021-11-18 22:31] LABS: Troponin High Sensitivity 4.3 pg/mL (<58.9)
[2021-11-18] MEDS ORDERED: ENOXAPARIN 100 MG/ML SYR SQ ONE (22:36)
--- NOTE | 2021-11-18 22:57 | P.HP ---
Certification for Inpatient Patient admitted to: Inpatient With expected LOS: <2 Midnights Patient will require the following post-hospital care: None Practitioner: I am a practitioner with admitting privileges, knowledge of patient current condition, hospital course, and medical plan of care. Services: Services provided to patient in accordance with Admission requirements found in Title 42 Section 412.3 of the Code of Federal Regulations Patient History Date of Service: 11/18/21 Primary Care Provider: Dr. Sahu Reason for admission: PE History of Present Illness: Patient is a 66-year-old female with hypertension who presented to the ED with a 3-day history of cough, congestion, chest tightness, weakness. She re ports that she has allergies and takes her medications regularly however her symptoms were not improving. In the ED, labs are significant for D-dimer of 1029 and a potassium of 3.2. Chest x-ray showed a mild opacity in the mid left lung. Chest CT PE protocol showed a small PE in the left upper lung. Venous ultrasound was negative. She was given aspirin 81 mg, Zithromax, Tylenol, Rocephin, Atrovent, levalbuterol, prednisone, Solu-Medrol, 1 L bolus, and potassium in the ED. Upon my assessment, patient reports her symptoms have slightly improved. She is agreeable to admission and treatment for PE. Allergies No Known Allergies Allergy (Verified 06/07/20 14:15) Home medications list reviewed: Yes Home Medications: Gabapentin 300 mg PO DAILY 10/16/17 Montelukast [Singulair*] 10 mg PO DAILY 10/16/17 hydroCHLOROthiazide [Hydrochlorothiazide] 25 mg PO DAILY 10/16/17 Aspirin 81 mg PO DAILY 06/07/20 Codeine/APAP [Tylenol W/Codeine #3 tab] 1 tab PO Q4HP PRN #30 tab 06/10/20 Sulfamethoxazole/Trimethoprim [Bactrim Ds Tablet] 1 each PO BID #10 tablet 06/10/20 - Past Medical/Surgical History Diabetic: No -: Allergies -: Arthritis -: HTN -: Tobacco use -: Cholecystectomy -: Knee surgery Psychosocial/ Personal History: Patient lives at home with her . - Family History Mother -: Heart disease Father -: Diabetes - Social History Smoking Status: Current every day smoker Alcohol use: No CD- Drugs: No Caffeine use: Yes Place of Residence: Home Review of Systems General: Weakness Respiratory: Cough, Shortness of Breath, Wheezing, As per HPI Cardiovascular: Chest Pain Physical Examination - Physical Exam General: Alert, In no apparent distress, Oriented x3 HEENT: Atraumatic, PERRLA, Mucous membr. moist/pink, EOMI, Sclerae nonicteric Neck: Supple, 2+ carotid pulse no bruit, No LAD, Without JVD or thyroid abnormality Respiratory: Expiratory wheezes Cardiovascular: Regular rate/rhythm, Normal S1 S2 Gastrointestinal: Normal bowel sounds, No tenderness Musculoskeletal: No tenderness Integumentary: No rashes Neurological: Normal speech, Normal strength at 5/5 x4 extr, Normal tone, Normal affect - Studies Laboratory Data (last 24 hrs) 11/18/21 20:46: WBC 6.20, Hgb 13.1, Hct 38.5, Plt Count 205 11/18/21 20:46: Sodium 139, Potassium 3.2 L, BUN 11, Creatinine 0.87, Glucose 97 Assessment and Plan - Problems (Diagnosis) (1) Shortness of breath Current Visit: Yes Status: Acute (2) Pneumonia Current Visit: Yes Status: Acute Qualifiers: Pneumonia type: due to unspecified organism Laterality: left Lung location: upper lobe of lung Qualified Code(s): J18.9 - Pneumonia, unspecified organism (3) Pulmonary embolism Current Visit: Yes Status: Acute Qualifiers: Pulmonary embolism type: unspecified Chronicity: acute Acute cor pulmonale presence: without acute cor pulmonale Qualified Code(s): I26.99 - Other pulmonary embolism without acute cor pulmonale (4) Tobacco use Current Visit: Yes Status: Chronic - Plan -Patient's D-dimer was [address] ED[address] angio showed small PE in the left upper lobe. Venous ultrasound was negative. Given full dose Lovenox. Patient does report taking 81 mg of aspirin on a daily basis. Pulmonology consulted -She was also given aspirin, azithromycin, Rocephin, breathing treatments and steroids in the ED. -Patient is an everyday smoker and reports chronic allergies. She does not require home oxygen and has not been requiring oxygen here. -Potassium was low at 3.2. Supplemental potassium given in the ED. Will cont inue on potassium replacement protocol. -Patient's vital signs are stable at this time. We will continue to monitor. Discharge Plan: Home Plan to discharge in: 48 Hours - Advance Directives Does patient have a Living Will: No Does patient have a Durable POA for Healthcare: No - Code Status/Comfort Care Code Status Assessed: Yes (Full) Critical Care: No Time Spent Managing Pts Care (In Minutes): 70
[2021-11-18] MEDS ORDERED: ONDANSETRON 4 MG/2 ML VIAL IV PRN (23:39)
[2021-11-18] MEDS ORDERED: ACETAMINOPHEN 500 MG TAB PO PRN (23:39)
[2021-11-18] MEDS ORDERED: ALBUTEROL 2.5 MG/3 ML NEB SOL NEB PRN (23:39)
[2021-11-19 00:37] VITALS: BMI 30.4
[2021-11-19] MEDS ORDERED: HYDROCODONE/CHLORPHEN 5 ML/OSYR PO PRN (00:51)
[2021-11-19] MEDS ORDERED: ZOLPIDEM TARTRATE 5 MG TABLET PO PRN (00:51)
[2021-11-19 04:41] LABS: Absolute Lymphocytes (CBC) 0.9 K/uL (0.7-4.9); Hematocrit 38.1 % (36.0-45.0); Lymphocytes % 16.2 % (15.3-44.8); MPV 8.7 fL (7.6-11.3); RBC Red Blood Cell Count 4.66 M/uL (3.86-4.86)
[2021-11-19 05:03] LABS: Albumin 3.4 g/dL (3.4-5.0); Bilirubin Total 0.2 mg/dL (0.2-1.0); Magnesium 2.1 mg/dL (1.8-2.4); Phosphorus 1.8 mg/dL (2.5-4.9); Protein, Total 7.4 g/dL (6.4-8.2); Thyroid Stimulating Hormone 0.381 uIU/mL (0.360-3.740)
[2021-11-19] MEDS ORDERED: INFLUENZA VACCINE (for 6+ mo) 0.5 ML DOSE IMVAC ONE (08:00)
[2021-11-19] MEDS ORDERED: PNEUMOCOCCAL VACCINE 0.5 ML IMVAC ONE (08:00)
--- NOTE | 2021-11-19 08:39 | P.CNS ---
Date of Consult: 11/19/21 Reason for Consult: Pulmonary embolism COPD exacerbation Primary Care Provider: Dr. Sahu Chief Complaint: PE History of Present Illness: Patient is 66 years of age former heavy smoker still continues to smoke admitted with increasing shortness of breath since Wednesday with cough congestion complaining of allergies no prior history of obstructive airways disease or thromboembolism Allergies No Known Allergies Allergy (Verified 06/07/20 14:15) Home Medications: Gabapentin 300 mg PO DAILY 10/16/17 Montelukast [Singulair*] 10 mg PO DAILY 10/16/17 hydroCHLOROthiazide [Hydrochlorothiazide] 25 mg PO DAILY 10/16/17 Levocetirizine Dihydrochloride [Xyzal] 5 mg PO DAILYPRN PRN 11/19/21 - Past Medical/Surgical History Diabetic: No -: Allergies -: Arthritis -: HTN -: Tobacco use -: Cholecystectomy -: Knee surgery Psychosocial/ Personal History: Patient lives at home with her . - Family History Mother Medical History: Heart disease Father Medical History: Diabetes - Social History Smoking Status: Current every day smoker Alcohol use: No CD- Drugs: No Caffeine use: Yes Place of Residence: Home Review of Systems 10-point ROS is otherwise unremarkable Respiratory: Cough, Shortness of Breath Physical Examination Temp Pulse Resp BP Pulse Ox 97.8 F 68 16 116/56 L 97 11/19/21 04:00 11/19/21 04:00 11/19/21 04:00 11/19/21 04:00 11/19/21 04:00 General: Alert, In no apparent distress, Oriented x3 Respiratory: Expiratory wheezes Cardiovascular: No edema, Regular rate/rhythm, Normal S1 S2 Gastrointestinal: Normal bowel sounds, Soft and benign Laboratory Data (last 24 hrs) 11/18/21 20:46: WBC 6.20, Hgb 13.1, Hct 38.5, Plt Count 205 11/18/21 20:46: Sodium 139, Potassium 3.2 L, BUN 11, Creatinine 0.87, Glucose 97 - Problems (1) Pulmonary embolism Current Visit: Yes Status: Acute Plan: Patient has a very small segmental defect in the left upper lobe be some underlying pneumonia or atelectasis risk for thromboembolism where she needs to be anticoagulated for at least 3 months for now lower extremity Dopplers are negative Qualifiers: Pulmonary embolism type: unspecified Chronicity: acute Acute cor pulmonale presence: without acute cor pulmonale Qualified Code(s): I26.99 - Other pulmonary embolism without acute cor pulmonale (2) COPD exacerbation Current Visit: No Status: Resolved Plan: I suspect that she has underlying COPD Finn precipitated by an infection patient to be discharged home on a bronchodilator Advair or Symbicort in addition to prednisone 10 mg twice a day for a week and antibiotics counseled to stop smoking labs reviewed unremarkable plan for discharge follow-up with me in a week
[2021-11-19 08:50] VITALS: BP 140/65; TEMP 97.6
[2021-11-19] MEDS ORDERED: predniSONE 20 MG TAB PO SCH (09:00)
[2021-11-19] MEDS ORDERED: levoFLOXacin 500 MG TAB PO SCH (09:00)
[2021-11-19] MEDS ORDERED: ALBUTEROL 2.5 MG/3 ML NEB SOL NEB SCH (09:00)
--- NOTE | 2021-11-19 09:12 | P.DS ---
Admission Date: 11/18/21 Discharge Date: 11/19/21 Primary Care Provider: Dr. Sahu Disposition: ROUTINE DISCHARGE Discharge Condition: FAIR Reason for Admission: PE Consultations: Pulmonary-Dr. Koo. - Problems (1) Pulmonary embolism Current Visit: Yes Status: Acute Qualifiers: Pulmonary embolism type: unspecified Chronicity: acute Acute cor pulmonale presence: without acute cor pulmonale Qualified Code(s): I26.99 - Other pulmonary embolism without acute cor pulmonale (2) Allergies Current Visit: Yes Status: Acute (3) Shortness of breath Current Visit: Yes Status: Acute (4) COPD exacerbation Current Visit: No Status: Resolved Brief History of Present Illness: Patient is a 66-year-old female with hypertension who presented to the ED with a 3-day history of cough, congestion, chest tightness, weakness. She reports that she has allergies and takes her medications regularly however her symptoms were not improving. In the ED, labs were significant for D-dimer of 1029 and a potassium of 3.2. Chest x-ray showed a mild opacity in the mid left lung. Chest CT PE protocol showed a small PE in the left upper lung. Venous ultrasound was negative. She was given aspirin 81 mg, Zithromax, Tylenol, Rocephin, Atrovent, levalbuterol, prednisone, Solu-Medrol, 1 L bolus, and potassium in the ED. Patient hospitalized for further management. Hospital Course: Patient placed in observation on the medical floor and treated for COPD exacerbation with steroid and bronchodilators. She was also started on Eliquis for pulmonary embolism. Patient symptoms improved with treatment, stable on room air. Patient seen by Dr. Hayes wells who assisted with management. Patient has clinically improved and deemed stable for discharge. Vital Signs/Physical Exam: Temp Pulse Resp BP Pulse Ox 97.6 F 73 18 140/65 97 11/19/21 08:00 11/19/21 08:00 11/19/21 08:00 11/19/21 08:00 11/19/21 08:00 General: Alert, In no apparent distress, Oriented x3 HEENT: Mucous membr. moist/pink Neck: JVD not distended Respiratory: Clear to auscultation bilaterally, Normal air movement Cardiovascular: No edema, Regular rate/rhythm, Normal S1 S2 Gastrointestinal: Normal bowel sounds, Soft and benign, Non-distended Musculoskeletal: No swelling Integumentary: No rashes, No cyanosis Neurological: Normal strength at 5/5 x4 extr Laboratory Data at Discharge: WBC 5.30 K/uL (4.3-10.9) D 11/19/21 04:22 Hgb 12.8 g/dL (12.0-15.0) 11/19/21 04:22 Hct 38.1 % (36.0-45.0) 11/19/21 04:22 Plt Count 210 K/uL (152-406) 11/19/21 04:22 Sodium 143 mmol/L (136-145) 11/19/21 04:22 Potassium 4.0 mmol/L (3.5-5.1) 11/19/21 04:22 BUN 10 mg/dL (7-18) 11/19/21 04:22 Creatinine 0.94 mg/dL (0.55-1.3) 11/19/21 04:22 Glucose 169 mg/dL (74-106) H 11/19/21 04:22 Phosphorus 1.8 mg/dL (2.5-4.9) L 11/19/21 04:22 Magnesium 2.1 mg/dL (1.8-2.4) 11/19/21 04:22 Total Bilirubin 0.2 mg/dL (0.2-1.0) 11/19/21 04:22 AST 24 U/L (15-37) 11/19/21 04:22 ALT 36 U/L (12-78) 11/19/21 04:22 Alkaline Phosphatase 97 U/L (45-117) 11/19/21 04:22 Triglycerides 72 mg/dL (<150) 11/19/21 04:22 Cholesterol 190 mg/dL (<200) 11/19/21 04:22 HDL Cholesterol 51 mg/dL (40-60) 11/19/21 04:22 Cholesterol/HDL Ratio 3.73 11/19/21 04:22 Home Medications: Gabapentin 300 mg PO DAILY 10/16/17 Montelukast [Singulair*] 10 mg PO DAILY 10/16/17 hydroCHLOROthiazide [Hydrochlorothiazide] 25 mg PO DAILY 10/16/17 Albuterol Inhaler [Ventolin Inhaler*] 2 puff IH Q6H PRN #1 hfa.aer.ad 11/19/21 Apixaban [Eliquis] 5 mg PO BID #74 tab.ds.pk 11/19/21 Fluticasone/Salmeterol [Advair 250-50 Diskus] 1 each IH BID #60 blst.w.dev 11/19/21 Levocetirizine Dihydrochloride [Xyzal] 5 mg PO DAILYPRN PRN 11/19/21 levoFLOXacin [Levaquin*] 500 mg PO DAILY #5 tab 11/19/21 predniSONE [Prednisone*] 20 mg PO BID #10 tab 11/19/21 New Medications: Fluticasone/Salmeterol [Advair 250-50 Diskus] 1 each IH BID #60 blst.w.dev Apixaban [Eliquis] 5 mg PO BID #74 tab.ds.pk levoFLOXacin [Levaquin*] 500 mg PO DAILY #5 tab predniSONE [Prednisone*] 20 mg PO BID #10 tab Albuterol Inhaler [Ventolin Inhaler*] 2 puff IH Q6H PRN #1 hfa.aer.ad PRN Reason: Shortness Of Breath Diet: AHA Activity: Ad tyrone Followup: Ryan Koo MD [ACTIVE - CAN ADMIT] - 1-2 Weeks (Call to schedule an appointment ) Briec Sahu MD [Primary Care Provider] - 1-2 Weeks (CAll to schedule an appointment )
[2021-11-19] MEDS ORDERED: APIXABAN 5 MG TABLET PO SCH (10:00)
--- NOTE | 2021-11-19 11:19 | RAD REPORT ---
EXAM DESCRIPTION: Extrem Venous W Compress Dylan [employer]: US EXTREMITY VEINS BILATERAL CLINICAL HISTORY: PAIN. COMPARISON: None. TECHNIQUE: Survey ultrasound imaging of the deep venous system of the bilateral lower extremities wa s performed including color and spectral Doppler evaluation with client account representative images obtained. Segm ental venous compression and calf vein augmentation were performed. FINDINGS: Right lower extremity: Common femoral vein: Patent without thrombus. Normal response to augmentation. Normal respiratory p hasicity is indirect evidence of central patency. Cephalad greater saphenous vein: Patent without thrombus. Normal response to augmentation. Normal r espiratory phasicity is indirect evidence of central patency. Femoral vein: Patent without thrombus. Normal response to augmentation. Popliteal vein: Patent without thrombus. Normal response to augmentation. Calf veins: Patent without thrombus. Left lower extremity: Common femoral vein: Patent without thrombus. Normal respiratory phasicity is indirect evidence of ce ntral patency. Cephalad greater saphenous vein: Patent without thrombus. Normal respiratory phasicity is indirect ev idence of central patency. Femoral vein: Patent without thrombus. Popliteal vein: Patent without thrombus. Normal response to augmentation. Calf veins: Patent without thrombus. IMPRESSION: Negative for bilateral lower extremity deep venous thrombosis. Electronically signed by: Lydia Gibbs MD 11/19/2021 12:04 AM CDT Due to temporary technical issues with the PACS/Fluency reporting system, reports are being signed by the in house radiologist without review as a courtesy to ensure prompt reporting. The interpreting r adiologist is fully responsible for the content of the report.
[2021-11-19 11:36] VITALS: O2SAT 97
--- NOTE | 2021-11-20 07:46 | EKG ---
Test Date: 2021-11-18 Test Time: 21:48:43 [employer] Instructor: JORGITO MEASUREMENT RESULTS: Intervals: Rate: 90 SD: 160 QRSD: 92 QT: 372 QTc: 455 [place]: P: 47 SD: 160 QRS: 77 T: 14 INTERPRETIVE STATEMENTS: Normal sinus rhythm ST & T wave abnormality, consider inferior ischemia Abnormal ECG Compared to ECG 06/07/2020 11:01:03 Possible ischemia now present ST (T wave) deviation still present Electronically Signed On 11-20-21 07:41:44 CDT by Karl Dodson
== END 2021-11-19 11:10 | disposition home or self-care (01) ==
LOC: ER 19:17 → ERHOLD 22:26 → INTOOBSV 22:26 → 2ND 23:22
PROVIDERS: ADMIT Internal Medicine; ATTEND Internal Medicine
DX: I26.99 Other pulmonary embolism without acute cor pulmonale (principal); J44.1 Chronic obstructive pulmonary disease with (acute) exacerbation; I10 Essential (primary) hypertension; F17.210 Nicotine dependence, cigarettes, uncomplicated; Z20.822 Contact with and (suspected) exposure to COVID-19; Z23 Encounter for immunization
CPT/HCPCS: 93005; 87040 ×2; 85025 ×2; 80048; 36415; 83735; 84100; 80061; 85379; 84443; 84484; 84439; 80053; 84145; 83880; 0240U; 71275; 71045; 90471 ×2; 93970; 90732; 96375; 96372; 96374; 99284; Q9967; Q2035; J0456; J1650; J7050; J7030; J2930; G0378 ×2; J7512

== ENCOUNTER 2022-03-28 20:02 | Emergency (ER) | payer BC ==
[2022-03-28] MEDS ORDERED: ONDANSETRON 4 MG/2 ML VIAL ONE (20:45)
[2022-03-28 21:02] LABS: Urine Blood Trace-intact (Negative); Urine Glucose Negative (Negative); Urine Protein Negative (Negative); Urine pH 6.5 (5.0-7.0)
[2022-03-28 21:12] LABS: Absolute Lymphocytes (CBC) 3.1 K/uL (0.7-4.9); Hematocrit 38.1 % (36.0-45.0); Lymphocytes % 40.2 % (15.3-44.8); MCV 77.9 fL (80-100); MPV 8.2 fL (7.6-11.3); RBC Red Blood Cell Count 4.89 M/uL (3.86-4.86)
[2022-03-28] MEDS ORDERED: HYDROCODONE/APAP 5/325 MG TAB ONE (21:23)
[2022-03-28 21:27] LABS: Albumin 3.6 g/dL (3.4-5.0); Bilirubin Total 0.2 mg/dL (0.2-1.0); Protein, Total 7.3 g/dL (6.4-8.2)
[2022-03-28 21:35] LABS: Potassium 2.9 mmol/L (3.5-5.1)
--- NOTE | 2022-03-28 22:14 | RAD REPORT ---
EXAM DESCRIPTION: CT - Abdomen Pelvis W Contrast - 03/28/2022 9:52 pm CLINICAL HISTORY: Abdominal pain COMPARISON: 2020 TECHNIQUE: Computed axial tomography of the abdomen pelvis was obtained. 100 cc Isovue-300 was admin istered intravenously. Oral contrast was not requested which limits evaluation of bowel and appendix All CT scans are performed using dose optimization technique as appropriate and may include automated exposure control or mA/KV adjustment according to patient size. FINDINGS: Prominent left lobe of liver unchanged. Cholecystectomy. A small duodenal diverticulum Spleen, pancreas, adrenal and kidneys appear unremarkable. There is no evidence of diverticulitis. Normal appendix. No adnexal mass. Spondylosis lumbar spine. 7 millimeter calcification within the lumbar spinal canal without significant change IMPRESSION: 7 millimeter calcification within the lumbar spinal canal without significant change may represent a calcified ependymoma or meningioma Prominence of the left lobe liver without significant change
--- NOTE | 2022-03-28 23:47 | EDPHYS ---
Physician Documentation [facility] Name: Krystyna Figueroa Age: 66 yrs Sex: Female : 1955 Arrival Date: 03/28/2022 Time: 20:05 Bed 5 Private MD: ED Physician Gerald Sanchez HPI: 03/28 20:26 This 66 yrs old Female presents to ER via Ambulatory with complaints of jmm Abdominal Pain. 20:26 The patient presents with abdominal pain. Onset: The symptoms/episode began/occurred jmm gradually, 5 week(s) ago. The symptoms do not radiate. Associated signs and symptoms: Pertinent positives: diarrhea, nausea. The symptoms are described as achy. Modifying factors: The symptoms are alleviated by nothing, the symptoms are aggravated by. The patient has not experienced similar symptoms in the past. Historical: - Allergies: 20:13 No Known Allergies; hb - PMHx: 20:13 allergies; Arthritis; Hypertension; hb - PSHx: 20:13 Cholecystectomy; hb - Immunization history:: Adult Immunizations up to date. - Social history:: Smoking status: Patient denies any tobacco usage or history of. ROS: 20:26 Constitutional: Negative for fever, chills, and weight loss, Cardiovascular: Negative jmm for chest pain, palpitations, and edema, Respiratory: Negative for shortness of breath, cough, wheezing, and pleuritic chest pain. 20:26 Abdomen/GI: Positive for abdominal pain, nausea, diarrhea. 20:26 All other systems are negative. Exam: 20:26 Constitutional: This is a well developed, well nourished patient who is awake, alert, jmm and in no acute distress. Head/Face: atraumatic. Eyes: EOMI, no conjunctival erythema appreciated ENT: Moist Mucus Membranes Neck: Trachea midline, Supple Chest/axilla: Normal chest wall appearance and motion. Cardiovascular: Regular rate and rhythm. No edema appreciated Respiratory: Normal respirations, no respiratory distress appreciated 20:26 Back: Normal ROM Skin: General appearance color normal MS/ Extremity: Moves all extremities, no obvious deformities appreciated, no edema noted to the lower extremities Neuro: Awake and alert Psych: Behavior is normal, Mood is normal, Patient is cooperative and pleasant 20:26 Abdomen/GI: Inspection: abdomen appears normal, Bowel sounds: normal, Palpation: soft, mild abdominal tenderness, in the right upper quadrant. Vital Signs: 20:11 BP 172 / 80; Pulse 81; Resp 16; Temp 98.3; Pulse Ox 100% on R/A; Weight 85.73 kg; hb Height 5 ft. 7 in. (170.18 cm); Pain 8/10; 21:30 BP 137 / 70; Pulse 65; Resp 16; Pulse Ox 99% on R/A; jb4 22:30 BP 137 / 71; Pulse 69; Resp 18; Pulse Ox 98% on R/A; jb4 03/29 00:00 BP 107 / 65; Pulse 64; Resp 16; Pulse Ox 98% on R/A; jb4 03/28 20:11 Body Mass Index 29.60 (85.73 kg, 170.18 cm) hb MDM: 03/28 20:26 Patient medically screened. [facility] 23:45 Data reviewed: vital signs, nurses notes. Counseling: I had a detailed discussion with shanon the patient and/or guardian regarding: the historical points, exam findings, and any diagnostic results supporting the discharge/admit diagnosis, lab results, radiology results, the need for outpatient follow up, to return to the emergency department if symptoms worsen or persist or if there are any questions or concerns that arise at home. ED course: Is alleviated in the ER. Patient vies follow-up with gastro for further evaluation. Lesion to the spine is also discussed with the patient along with the need for further evaluation by PCP. Patient understood agrees plan of care. 03/28 20:27 Order name: CBC with Diff; Complete Time: 21:23 [facility] 03/28 20:27 Order name: CMP; Complete Time: 21:46 [facility] 03/28 20:27 Order name: Lipase; Complete Time: 21:46 [facility] 03/28 20:27 Order name: CT Abd/Pelvis - IV Contrast Only; Complete Time: 22:18 [facility] 03/28 21:03 Order name: Urine Dipstick-Ancillary; Complete Time: 21:23 [facility] 03/28 20:27 Order name: IV Saline Lock; Complete Time: 21:02 [facility] 03/28 20:27 Order name: Labs collected and sent; Complete Time: 21:02 [facility] 03/28 20:27 Order name: Urine Dipstick-Ancillary (obtain specimen); Complete Time: 21:02 [facility] Administered Medications: 21:02 Not Given (Patient Refused): Zofran (Ondansetron) 4 mg IVP once; over 2 minutes jb4 21:11 Not Given (Patient Refused): morphine 4 mg IVP once over 4 mins jb4 21:19 Drug: HYDROcodone-acetaminophen 5 mg-325 mg 1 tabs Route: PO; jb4 03/29 00:13 Follow up: Response: No adverse reaction; Marked relief of symptoms jb4 00:13 Drug: Potassium Chloride 40 mEq Route: PO; jb4 00:13 Follow up: Response: Medication administered at discharge. jb4 00:13 Drug: Cephalexin 500 mg Route: PO; jb4 00:13 Follow up: Response: Medication administered at discharge. jb4 Disposition: 04:00 Co-signature as Attending Physician, Gerald Sanchez MD I agree with the assessment and kdr plan of care. Disposition Summary: 03/28/22 23:46 Discharge Ordered Location: Home [facility] Condition: Stable [facility] Diagnosis - Abdominal pain, unspecified jm - UTI/ Urinary tract infection, site not specified [facility] Followup: [facility] - With: Ric Keenan MD - When: 2 - 3 days - Reason: Recheck today's complaints, Continuance of care, Re-evaluation by your physician Discharge Instructions: - Discharge Summary Sheet [facility] - Abdominal Pain, Adult jm - Food Choices to Help Relieve Diarrhea, Adult jm - Diarrhea, Adult [facility] Forms: - Medication Reconciliation Form [facility] - Thank You Letter [facility] - Antibiotic Education [facility] - Prescription Opioid Use [facility] Prescriptions: - ondansetron 4 mg Oral tablet,disintegrating - place 1 tablet by TRANSLINGUAL route every 4-6 hours As needed; 20 tablet; [facility] Refills: 0, Product Selection Permitted - Cephalexin 500 mg Oral Capsule - take 1 capsule by ORAL route every 8 hours for 10 days; 30 capsule; Refills: 0, [facility] Product Selection Permitted - dicyclomine 20 mg Oral Tablet - take 1 tablet by ORAL route 4 times per day As needed; 40 tablet; Refills: 0, [facility] Product Selection Permitted Signatures: Dispatcher [employer] Gerald Zhu MD MD kdr Mickail, Joel, PA PA [facility] Maria Li RN RN Halstad, Peterson, RN RN jb4
--- NOTE | 2022-03-28 23:47 | ER ---
Nurse's Notes [facility] Name: Krystyna Figueroa Age: 66 yrs Sex: Female : 1955 Arrival Date: 03/28/2022 Time: 20:05 Bed 5 Private MD: Diagnosis: Abdominal pain, unspecified;UTI/ Urinary tract infection, site not specified Presentation: 03/28 20:11 Chief complaint: Sharp RUQ pain and diarrhea x 1 month. Coronavirus screen: At this hb time, the client does not indicate any symptoms associated with coronavirus-19. Ebola Screen: No symptoms or risks identified at this time. Risk Assessment: Do you want to hurt yourself or someone else? Patient reports no desire to harm self or others. Onset of symptoms was March 28, 2022. 20:11 Method Of Arrival: Ambulatory 20:11 Acuity: GIANCARLO 3 hb Historical: - Allergies: 20:13 No Known Allergies; hb - PMHx: 20:13 allergies; Arthritis; Hypertension; hb - PSHx: 20:13 Cholecystectomy; hb - Immunization history:: Adult Immunizations up to date. - Social history:: Smoking status: Patient denies any tobacco usage or history of. Screenin:30 Abuse screen: Denies threats or abuse. Nutritional screening: No deficits noted. jb4 Tuberculosis screening: No symptoms or risk factors identified. Fall Risk None identified. Assessment: 20:30 General: Appears in no apparent distress. uncomfortable, Behavior is calm, cooperative, jb4 appropriate for age. Pain: Complains of pain in posterior aspect of right lateral abdomen Pain does not radiate. Pain currently is 6 out of 10 on a pain scale. Quality of pain is described as sharp. Neuro: Level of Consciousness is awake, alert, obeys commands, Oriented to person, place, time, situation. Cardiovascular: Patient's skin is warm and dry. Respiratory: Airway is patent Respiratory effort is even, unlabored, Respiratory pattern is regular, symmetrical. GI: No signs and/or symptoms were reported involving the gastrointestinal system. : No signs and/or symptoms were reported regarding the genitourinary system. Derm: Skin is healthy with good turgor, Skin is pink, warm \T\ dry. Musculoskeletal: Circulation, motion, and sensation intact. Range of motion: intact in all extremities. 21:30 Reassessment: Patient appears in no apparent distress at this time. Patient and/or jb4 family updated on plan of care and expected duration. Pain level reassessed. Patient is alert, oriented x 3, equal unlabored respirations, skin warm/dry/pink. 22:40 Reassessment: Patient appears in no apparent distress at this time. Patient and/or jb4 family updated on plan of care and expected duration. Pain level reassessed. Patient is alert, oriented x 3, equal unlabored respirations, skin warm/dry/pink. 03/29 00:13 Reassessment: Patient appears in no apparent distress at this time. Patient and/or jb4 family updated on plan of care and expected duration. Pain level reassessed. Patient is alert, oriented x 3, equal unlabored respirations, skin warm/dry/pink. Vital Signs: 03/28 20:11 BP 172 / 80; Pulse 81; Resp 16; Temp 98.3; Pulse Ox 100% on R/A; Weight 85.73 kg; hb Height 5 ft. 7 in. (170.18 cm); Pain 8/10; 21:30 BP 137 / 70; Pulse 65; Resp 16; Pulse Ox 99% on R/A; jb4 22:30 BP 137 / 71; Pulse 69; Resp 18; Pulse Ox 98% on R/A; jb4 03/29 00:00 BP 107 / 65; Pulse 64; Resp 16; Pulse Ox 98% on R/A; jb4 03/28 20:11 Body Mass Index 29.60 (85.73 kg, 170.18 cm) hb ED Course: 03/28 20:05 Patient arrived in ED. jj6 20:13 Triage completed. hb 20:13 Arm band placed on. 20:17 Chauncey Fink PA is PHCP. [facility] 20:17 Gerald Sanchez MD is Attending Physician. [facility] 20:30 Patient has correct armband on for positive identification. Bed in low position. Call [facility] light in reach. Side rails up X 1. 20:33 Peterson Ohara, TONI is Primary Nurse. [facility] 21:06 Inserted saline lock: 22 gauge in right forearm, using aseptic technique. Blood ds4 collected. 21:35 Notified ED physician of a critical lab result(s). potassium 2.9. tw5 21:54 CT Abd/Pelvis - IV Contrast Only In Process Unspecified. EDMS 23:46 Ric Keenan MD is Referral Physician. [facility] 03/29 00:14 No provider procedures requiring assistance completed. IV discontinued, intact, jb4 bleeding controlled, No redness/swelling at site. Pressure dressing applied. Administered Medications: 03/28 21:02 Not Given (Patient Refused): Zofran (Ondansetron) 4 mg IVP once; over 2 minutes jb4 21:11 Not Given (Patient Refused): morphine 4 mg IVP once over 4 mins jb4 21:19 Drug: HYDROcodone-acetaminophen 5 mg-325 mg 1 tabs Route: PO; jb4 03/29 00:13 Follow up: Response: No adverse reaction; Marked relief of symptoms jb4 00:13 Drug: Potassium Chloride 40 mEq Route: PO; jb4 00:13 Follow up: Response: Medication administered at discharge. jb4 00:13 Drug: Cephalexin 500 mg Route: PO; jb4 00:13 Follow up: Response: Medication administered at discharge. jb4 Medication: 00:00 VIS not applicable for this client. jb4 Outcome: 03/28 23:46 Discharge ordered by . [facility] 03/29 00:14 Discharged to home ambulatory. jb4 Condition: stable Discharge instructions given to patient, family, Instructed on discharge instructions, follow up and referral plans. medication usage, Demonstrated understanding of instructions, follow-up care, medications, Prescriptions given X 3. 00:15 Patient left the ED. jb4 Signatures: Dispatcher [employer] EDMS Chauncey Fink PA PA [facility] Kenneth Denton ds4 Maria Li, RN RN Peterson Bright RN RN jb4 Kristine Walden tw5 Sherin Honeycutt jj6
[2022-03-29] MEDS ORDERED: CEPHALEXIN 250 MG CAP ONE (00:17)
[2022-03-29] MEDS ORDERED: POTASSIUM CL SA 10 MEQ TAB PO ONE (00:17)
[2022-03-29 01:07] VITALS: TEMP 98.3
[2022-03-29 01:21] VITALS: O2SAT 98
[2022-03-29 01:31] VITALS: BP 107/65
== END 2022-03-29 00:15 | disposition home or self-care (01) ==
LOC: ER 20:02
DX: N39.0 Urinary tract infection, site not specified (principal); I10 Essential (primary) hypertension
CPT/HCPCS: 85025; 36415; 81003; 83690; 80053; 74177; 99284; Q9967; J2405

== ENCOUNTER 2024-06-08 09:27 | Emergency (ER) | payer BC ==
--- NOTE | 2024-06-08 10:10 | RAD REPORT ---
Stone Protocol CLINICAL INDICATION: Female, 68 years old.right flank pain TECHNIQUE: CT abdomen and pelvis was performed, without IV contrast, as per department protocol using a CT stone protocol. Axial, sagittal and coronal reconstructions were obtained. One or more of the following dose reduction techniques were used: Automated exposure control, adjustment of the mA and/o r kV according to the patient size, and/or iterative reconstruction. Unless otherwise specified, incidental findings do not require dedicated imaging follow-up. [id number]. IV CONTRAST: Not administered. COMPARISON: None FINDINGS: The lack of intravenous contrast limits the sensitivity of this exam for evaluation of solid visceral organs, vascular structures, and retroperitoneum. LOWER CHEST: The visualized lung bases are clear. LIVER: Normal in size and contour. No focal lesion. Hepatic steatosis. GALLBLADDER/BILE DUCTS: Cholecystectomy? PANCREAS: No mass, ductal dilation, or pete-pancreatic fluid. SPLEEN: Normal size. No focal lesion. ADRENALS: Normal; no mass. KIDNEYS AND URETERS: Normal size and contour. No hydronephrosis. URINARY BLADDER: Normal contour. GASTROINTESTINAL TRACT: Stomach is non-dilated. Small bowel has normal course and caliber. No colonic wall thickening or pericolonic inflammatory changes. Normal appendix. Diverticulosis without diverticulitis. PERITONEUM: No free fluid. ABDOMINAL AORTA AND OTHER VESSELS: Normal caliber aorta and IVC. REPRODUCTIVE ORGANS: No pathologic process. MUSCULOSKELETAL: Intradural calcification at L3 is unchanged. Moderate disc height loss at L4-5 and m ild disc height loss at L5-S1. Moderate disc height loss is also present T9-10 and T10-11. ADDITIONAL FINDINGS: None. IMPRESSION: No acute or significant abnormalities in the abdomen or pelvis, with evaluation limited by lack of IV contrast. No urinary tract calculi identified.
[2024-06-08] MEDS ORDERED: ONDANSETRON 4 MG/2 ML VIAL ONE (10:27)
[2024-06-08] MEDS ORDERED: TAMSULOSIN 0.4 MG SR CAP ONE (10:27)
[2024-06-08] MEDS ORDERED: MORPHINE 4 MG/ML SYR ONE (10:27)
[2024-06-08 10:30] LABS: Specific Gravity 1.007 (1.005-1.030); Sqamous Epithelial <5 /HPF (None Seen); Transitional Epithelial <5 /HPF (None Seen); Urine Bacteria <20 /HPF (<20); Urine Bilirubin NEGATIVE (Negative); Urine Blood Negative (Negative); Urine Clarity Turbid (Clear); Urine Color Colorless (Yellow); Urine Culture Reflex Order NOT NEEDED; Urine Glucose NEGATIVE (Negative); Urine Ketones NEGATIVE (Negative); Urine Microscopic Reflex YN ORDER UMIC; Urine Nitrite NEGATIVE (Negative); Urine Protein NEGATIVE (Negative); Urine RBC <5 /HPF (None Seen); Urine Urobilinogen Normal (Normal); Urine WBC <5 /HPF (<5)
[2024-06-08 10:31] LABS: Absolute Basophils 0.1 K/uL (0-0.5); Absolute Eosinophils 0.1 K/uL (0-0.5); Absolute Lymphocytes (CBC) 2.4 K/uL (0.7-4.9); Absolute Monocytes 0.3 K/uL (0.1-1.3); Absolute Neutrophil 4.7 K/uL (1.8-8.0); Basophils % 1.2 % (0-1.3); Hematocrit 40.8 % (36.0-45.0); Hemoglobin 13.6 g/dL (12.0-15.0); Lymphocytes % 31.7 % (15.3-44.8); MCH 27.7 pg (27.0-35.0); MCHC 33.3 g/dL (32.0-36.0); MPV 8.3 fL (7.6-11.3); Monocytes % 4.5 % (3.3-12.3); Neutrophils % 61.6 % (41.7-73.7); Nucleated Red Blood Cells % 0.1 % (0-0); Platelets 249 thou/uL (152-406); RBC Red Blood Cell Count 4.92 M/uL (3.86-4.86); Red Cell Distribution Width 13.9 % (12.1-15.2)
--- NOTE | 2024-06-08 10:47 | EDPHYS ---
Physician Documentation [facility] Name: Krystyna Figueroa Age: 68 yrs Sex: Female : 1955 Arrival Date: 06/08/2024 Time: 09:27 Bed 8 Private MD: ED Physician Yandel Sommer HPI: 06/08 09:52 This 68 yrs old Female presents to ER via Ambulatory with complaints of Flank rn Pain. 09:52 The patient complains of pain in the right mid back. The pain radiates. Onset: The rn symptoms/episode began/occurred 6 day(s) ago. Modifying factors: The symptoms are alleviated by nothing. the symptoms are aggravated by nothing. Associated signs and symptoms: Pertinent positives: nausea, Pertinent negatives: fever. Severity of pain: At its worst the pain was moderate in the emergency department the pain is unchanged. The patient has experienced similar episodes in the past. Patient reports right flank pain that radiates to the right abdomen. Began 6 days ago. Feels identical to previous kidney stones in the past. Has required intervention 1 time in the past years ago. Denies any fever or chills. Has had cholecystectomy. Historical: - Allergies: 10:41 No Known Allergies; ph - PMHx: 09:48 allergies; Arthritis; Hypertension; iw - PSHx: 09:48 Cholecystectomy; iw - Immunization history:: Adult Immunizations unknown. - Infectious Disease History:: Denies. - Family history:: not pertinent. - Hospitalizations: : No recent hospitalization is reported. - Social history:: Smoking status: unknown. ROS: 09:52 Constitutional: Negative for fever, chills, and weight loss, Cardiovascular: Negative rn for chest pain, palpitations, and edema, Respiratory: Negative for shortness of breath, cough, wheezing, and pleuritic chest pain, Abdomen/GI: Positive for right flank and abdominal pain Back: Positive for right flank pain Exam: 09:52 Constitutional: This is a well developed, well nourished patient who is awake, alert, rn appears uncomfortable, holding right side Cardiovascular: Regular rate and rhythm. No pulse deficits. Abdomen/GI: Soft, nontender Vital Signs: 09:37 BP 167 / 110; Pulse 70; Resp 17; Temp 97.6; Pulse Ox 98% on R/A; iw MDM: 09:44 Patient medically screened. rn 10:44 Differential diagnosis: nephrolithiasis, pyelonephritis, UTI, diverticulitis. Data rn reviewed: vital signs, nurses notes, lab test result(s), radiologic studies, CT scan, and as a result, I will discharge patient. Counseling: I had a detailed discussion with the patient and/or guardian regarding the historical points, exam findings, and any diagnostic results supporting the discharge/admit diagnosis, lab results, radiology results, the need for outpatient follow up, to return to the emergency department if symptoms worsen or persist or if there are any questions or concerns that arise at home. Response to treatment: the patient's symptoms have markedly improved after treatment, and as a result, I will discharge patient. Special discussion: I discussed with the patient/guardian in detail that at this point there is no indication for admission to the hospital. It is understood, however, that if the symptoms persist or worsen the patient needs to return immediately for re-evaluation. ED course: No acute findings and workup. Specifically no kidney stone. Possibly passed kidney stone recently. Will discharge home with pain medication and antibiotics for possible UTI given possibility of recent stone and patient symptomatic. Return precautions given and understood. Patient states 0 pain at this time after pain medication. 06/08 09:42 Order name: CBC with Diff; Complete Time: 10:39 rn 06/08 09:42 Order name: Urinalysis w/ reflexes; Complete Time: 10:39 rn 06/08 09:42 Order name: CT Stone Protocol; Complete Time: 10:14 rn 06/08 09:42 Order name: IV Saline Lock; Complete Time: 10:42 rn 06/08 09:42 Order name: Labs collected and sent; Complete Time: 10:42 rn Administered Medications: 10:24 Not Given (Duplicate Order): flomax0.4 mg PO once rn 10:41 Drug: Ondansetron IVP 4 mg IVP once; over 2 minutes Route: IVP; Site: right hand; ph 10:59 Follow up: Response: No adverse reaction ph 10:41 Drug: morphine IVP or IV 4 mg IVP once over 4 mins Route: IVP; Infused Over: 4 mins; ph Site: right hand; 10:59 Follow up: Response: No adverse reaction; Pain is decreased; RASS: Alert and Calm (0) ph Disposition Summary: 06/08/24 10:46 Discharge Ordered Notes: Location: Home rn Problem: new rn Symptoms: have improved rn Condition: Stable rn Diagnosis - Flank pain rn Followup: rn - With: Private Physician - When: As needed - Reason: Recheck today's complaints, Re-evaluation by your physician Discharge Instructions: - Discharge Summary Sheet rn - Flank Pain, Adult rn Forms: - Medication Reconciliation Form rn - Antibiotic lace burn out tender - Prescription Opioid Use rn - Patient Portal Instructions rn - Leadership Thank You Letter rn Prescriptions: - Cipro 500 mg Oral Tablet - take 1 tablet ORAL route every 12 hours for 7 days; 14 tablet; Refills: 0, rn Product Selection Permitted - Tramadol 50 mg Oral Tablet - take 1 tablet ORAL route every 8 hours as needed; 12 tablet; Refills: 0, rn Product Selection Permitted Signatures: Dispatcher [employer] Lenore Talbert, RN Yandel Loaiza MD MD rn Hall, Patricia, RN RN Nirmala Cates [facility] Corrections: (The following items were deleted from the chart) 09:55 09:52 Patient reports right flank pain that radiates to the right abdomen. Began 6 days rn ago. Feels identical to previous kidney stones in the past. Has required intervention 1 time in the past years ago. Denies any fever or chills.. rn 10:57 10:32 Labs - recollect needed ordered. 6 ph
--- NOTE | 2024-06-08 10:47 | ER ---
Nurse's Notes [facility] Name: Krystyna Figueroa Age: 68 yrs Sex: Female : 1955 Arrival Date: 06/08/2024 Time: 09:27 Bed 8 Private MD: Diagnosis: Flank pain Presentation: 06/08 09:46 Chief complaint: Patient states: right sided abd pain denies n/v. Coronavirus screen: iw At this time, the client does not indicate any symptoms associated with coronavirus-19. Ebola Screen: No symptoms or risks identified at this time. Initial Sepsis Screen: Does the patient meet any 2 criteria? No. Patient's initial sepsis screen is negative. Does the patient have a suspected source of infection? No. Patient's initial sepsis screen is negative. Risk Assessment: Do you want to hurt yourself or someone else? Patient reports no desire to harm self or others. 09:46 Method Of Arrival: Ambulatory iw 09:46 Acuity: GIANCARLO 3 iw 10:41 Onset of symptoms was June 08, 2024. ph Historical: - Allergies: 10:41 No Known Allergies; ph - PMHx: 09:48 allergies; Arthritis; Hypertension; iw - PSHx: 09:48 Cholecystectomy; iw - Immunization history:: Adult Immunizations unknown. - Infectious Disease History:: Denies. - Family history:: not pertinent. - Hospitalizations: : No recent hospitalization is reported. - Social history:: Smoking status: unknown. Screenin:37 [facility] ED Fall Risk Assessment (Adult) History of falling in the last 3 months, ph including since admission No falls in past 3 months (0 pts) Confusion or Disorientation Yes (5 pts) Intoxicated or Sedated No (0 pts) Impaired Gait No (0 pts) Mobility Assist Device Used No (0 pt) Altered Elimination No (0 pt) Score/Fall Risk Level 0 - 2 = Low Risk Oriented to surroundings, Maintained a safe environment, Hourly rounding (assess needs \T\ fall precautionary measures) done. Abuse screen: Denies threats or abuse. Denies injuries from another. Nutritional screening: No deficits noted. Tuberculosis screening: No symptoms or risk factors identified. Assessment: 10:37 General: Appears in no apparent distress. uncomfortable, Behavior is calm, cooperative. ph Pain: Complains of pain in right mid back Pain radiates to right lower quadrant. Neuro: Level of Consciousness is awake, alert, obeys commands, Oriented to person, place, time, situation. Cardiovascular: Capillary refill < 3 seconds in bilateral fingers Patient's skin is warm and dry. Respiratory: Airway is patent Respiratory effort is even, unlabored. GI: Reports lower abdominal pain, Patient currently denies nausea, vomiting. : Reports pain in right flank(s), lower quadrant(s). Derm: Skin is pink, warm \T\ dry. Vital Signs: 09:37 BP 167 / 110; Pulse 70; Resp 17; Temp 97.6; Pulse Ox 98% on R/A; iw ED Course: 09:30 Patient arrived in ED. im 09:30 Yandel Sommer MD is Attending Physician. rn 09:48 Triage completed. iw 09:52 Leena Mistry, RN is Primary Nurse. ph 09:57 CT Stone Protocol In Process Unspecified. EDMS 10:15 Missed attempt(s): 22 gauge in right antecubital area. Bleeding controlled, band aid ph applied, catheter tip intact. 10:15 Urine collected: clean catch specimen, clear. ph 10:20 Initial lab(s) drawn, by me, sent to lab. Inserted saline lock: 22 gauge in right hand, ph using aseptic technique. Blood collected. Flushed with 10 mL NS. 10:40 Arm band placed on. ph 10:40 Patient has correct armband on for positive identification. Bed in low position. Call ph light in reach. Side rails up X 1. Pulse ox on. NIBP on. Door closed. Noise minimized. Warm blanket given. 10:41 No provider procedures requiring assistance completed. ph 10:59 IV discontinued, intact, bleeding controlled, No redness/swelling at site. Pressure ph dressing applied. Administered Medications: 10:24 Not Given (Duplicate Order): flomax0.4 mg PO once rn 10:41 Drug: Ondansetron IVP 4 mg IVP once; over 2 minutes Route: IVP; Site: right hand; ph 10:59 Follow up: Response: No adverse reaction ph 10:41 Drug: morphine IVP or IV 4 mg IVP once over 4 mins Route: IVP; Infused Over: 4 mins; ph Site: right hand; 10:59 Follow up: Response: No adverse reaction; Pain is decreased; RASS: Alert and Calm (0) ph Medication: 10:40 VIS not applicable for this client. ph Outcome: 10:46 Discharge ordered by . rn 10:59 Discharged to home ambulatory, with significant other, 10:59 Condition: good 10:59 Discharge instructions given to patient, Instructed on discharge instructions, follow up and referral plans. medication usage, Demonstrated understanding of instructions, follow-up care, medications, Prescriptions given X 2, 10:59 Patient left the ED. ph Signatures: Dispatcher [employer] Lenore Talbert, RN Yandel Loaiza MD MD rn Hall, Patricia, RN RN ph Mendoza, Itzel
[2024-06-08 11:44] VITALS: BP 167/110; TEMP 97.6; O2SAT 98
== END 2024-06-08 10:59 | disposition home or self-care (01) ==
LOC: ER 09:27
DX: R10.9 Unspecified abdominal pain (principal); Z87.442 Personal history of urinary calculi
CPT/HCPCS: 85025; 81001; 36415; 76377; 74176; J2405; 96374; 96375; 99284